=== PATIENT | male | born 1930 | race Caucasian/White ===

== ENCOUNTER → 2016-12-05 | Outpatient (CLI) | payer OTHER, BC ==
[~2016-12-05] MED LIST: ACET-1256 PO; AMLO-110 PO; ASPI81TA28 PO; CLC100 PO; CLOP1TAB15 PO; CLR10 PO; COEN100C15 PO; CYAN1LOZ PO; CYAN1TAB4 PO; DIPH25CA65 PO; DOFE250C PO; DOXA1TAB86 PO; EZET10TA47 PO; HYDR-5688 PO; LDDP5 TD; LISI-725 PO; LRS10 PO; MONT1TAB3 PO; MRLP17 PO; NCYSR50 PO; NTRGSL/4 UT; PANT1TAB48 PO; SILO8CAP PO; SIMV10TA5 PO; SNK PO; WARF5TAB90 PO
[2016-12-05 13:17] LABS: BASO % 0.4 %; BASO ABS # 0.02 K/uL (0-0.2); COMPLETE YES; EOS % 8.3 %; HEMATOCRIT 38.1 % (42-52); IG% 0.4 %; LYMPH ABS # 1.03 K/uL (1.2-3.4); MEAN CELL VOLUME 89.2 fL (80-100); MEAN CORPUSCULAR HEMOGLOBIN 30.2 pg (25-34); MEAN CORPUSCULAR HGB CONC 33.9 g/dl (32-36); MEAN PLATELET VOLUME 11.8 fL (7.4-10.4); MONO % 8.1 %; NEUT % 62.8 %; PLATELET COUNT 126 K/uL (130-400); RED BLOOD COUNT 4.27 M/uL (4.7-6.1); WHITE BLOOD COUNT 5.16 K/uL (4.8-10.8)
[2016-12-05 13:40] LABS: ALT/SGPT 27 U/L (12-78); BLOOD UREA NITROGEN 20 mg/dl (7-18); BUN/CREATININE RATIO 18.1 (10-20); CARBON DIOXIDE 25 mmol/L (21-32); CHLORIDE 108 mmol/L (98-107); CHOLESTEROL 111 mg/dl (0-200); GLUCOSE 122 mg/dl (70-99); POTASSIUM 4.4 mmol/L (3.5-5.1); SODIUM 142 mmol/L (136-145)
[2016-12-05 13:53] LABS: ESTIMATED AVERAGE GLUCOSE 137 mg/dl; HA1C FLAG Normal (Normal)
[2016-12-05 14:45] LABS: ALB/GLOB RATIO 1.1 (0.9-2); ALKALINE PHOSPHATASE 85 U/L (45-117); AST/SGOT 24 U/L (15-37); CHOLESTEROL/HDL RATIO 1.9; HDL CHOLESTEROL 57 mg/dl; LDL CHOLESTEROL CALCULATED 43 mg/dl; TRIGLYCERIDES 53 mg/dl (0-150); VERY LOW DENSITY LIPOPROT CALC 11 mg/dl
--- NOTE | 2016-12-09 13:43 | CODING QUERY MEDICAL NECESSITY ---
SUPPORTING DIAGNOSIS NEEDED Dr. Springer, A supporting diagnosis is required for the test/procedure performed on this patient in order for us to be reimbursed by the patient's insurance. Please provide a supporting diagnosis for the following test/procedure listed below next to the test name along with your signature. *If there is no additional diagnosis for this patient that would support the following test/procedure please document that below next to the test/procedure. Test(s)/Procedure(s) that require a supporting diagnosis: * 23076 GLYCATED HEMOGLOBIN DIAGNOSIS: DATE OF SERVICE: 12/05/16 Provider Signature: Date: Thank you Oscar Hough [facility] Information Management Once completed, please kindly fax back to [phone] For questions please call [phone]
== END | disposition home or self-care (01) ==
LOC: C.LAB 11:59
PROVIDERS: ATTEND Internal Medicine
DX: D61.818 Other pancytopenia (principal); R73.01 Impaired fasting glucose

== ENCOUNTER → 2017-01-26 | Outpatient (CLI) | payer OTHER, BC ==
[~2017-01-26] MED LIST changes: -CLC100 PO; -CYAN1TAB4 PO; -HYDR-5688 PO; -LDDP5 TD; -LRS10 PO; -MRLP17 PO; -NCYSR50 PO; -SNK PO
[2017-01-26 15:42] LABS: INR 1.9 (0.9-1.1); PROTHROMBIN TIME (PATIENT) 21.1 SECONDS (9.0-12.0)
[2017-01-26 15:46] LABS: BASO % 0.2 %; BASO ABS # 0.01 K/uL (0-0.2); COMPLETE YES; EOS % 6.9 %; HEMATOCRIT 35.5 % (42-52); IG% 0.2 %; LYMPH % 27.3 %; LYMPH ABS # 1.26 K/uL (1.2-3.4); MEAN CELL VOLUME 87.4 fL (80-100); MEAN CORPUSCULAR HEMOGLOBIN 29.8 pg (25-34); MEAN CORPUSCULAR HGB CONC 34.1 g/dl (32-36); MEAN PLATELET VOLUME 11.6 fL (7.4-10.4); MONO % 10.4 %; PLATELET COUNT 116 K/uL (130-400); RED BLOOD COUNT 4.06 M/uL (4.7-6.1); WHITE BLOOD COUNT 4.61 K/uL (4.8-10.8)
[2017-01-26 16:11] LABS: BLOOD UREA NITROGEN 17 mg/dl (7-18); BUN/CREATININE RATIO 13.8 (10-20); CALCIUM 9.2 mg/dl (8.5-10.1); CARBON DIOXIDE 26 mmol/L (21-32); CHLORIDE 108 mmol/L (98-107); GLUCOSE 114 mg/dl (70-99); POTASSIUM 4.3 mmol/L (3.5-5.1); SODIUM 142 mmol/L (136-145)
== END | disposition home or self-care (01) ==
LOC: C.LAB 14:02
PROVIDERS: ATTEND Internal Medicine Cardiovascular Disease
DX: R94.30 Abnormal result of cardiovascular function study, unspecified (principal)

== ENCOUNTER → 2017-02-11 | Day surgery (SDC) | payer OTHER, BC ==
[2017-01-06 13:42] VITALS: Ht 165.1 cm; Wt 77.3 kg
[~2017-02-11] VITALS: Ht 165.1 cm; Wt 77.3 kg
[~2017-02-11] MED LIST changes: +500ML BSS 0.3ML EPI 1:1000PF IRRIG ONE; +ACETAMINOPHEN 325 MG TAB PO PRN; +AMVISC PLUS 0.8ML SYRINGE INT OCU ONE; +ATROPINE SULFATE 0.1 MG/ML 5ML SYR IV PRN; +AcetaZOLAMIDE 250 MG TAB PO SCH; +BETAXOLOL HCL 0.25% OP SUSP PER DROP CHARGE OPR SCH; +BRIMONIDINE TART 0.2% OP SOLN PER DROP CHARGE ONE; +BSS FLUSH ONE; +ENDOCOAT 0.85ML SYRINGE INT OCU ONE; +EpINEphrine INJ 1MG/ML AMP 1 MG/ML AMP ONE; +LACTATED RINGER'S 1000ML 500 ML IV SCH; +LIDOCAINE 4% OP SOLN DROP CHARGE ONE; +LIDOCAINE 4% OP SOLN DROP CHARGE OPR SCH; +LIDOCAINE HCL 1% MPF 2 ML VIAL ONE; +MIDAZOLAM HCL 1 MG/ML 2ML VIAL ONE; +MIX: 4ML BSS 1ML EPI 1:1000 PF INSTIL ONE; +MOXIFLOXACIN OPH SOLN PER DROP CHARGE ONE; +OCUCOAT 1 ML SOLN IO ONE; +POVIDONE-IODINE OP SOLN 30 ML BTL ONE; +PROPARACAINE 0.5% OP SOLN PER DROP CHARGE OPR SCH; +TOBRAMYCIN/DEXAMETHASONE OPH OINT PER APPLN CHARGE ONE
--- NOTE | 2017-02-11 06:36 | History & Physical Bridge - SC ---
H&P Re-Evaluation Bridge Note: I have examined the patient, reviewed the History & Physical and in the interval since the performance of the History & Physical I have noted the following changes of clinical significance: No changes noted
[2017-02-11] MEDS: PHENYLEPHRINE HCL 2.5% OP SOLN PER DROP CHARGE OPR SCH ×2 (06:43→06:48)
[2017-02-11] MEDS: TROPICAMIDE 1% OP SOLN PER DROP CHARGE OPR SCH ×2 (06:44→06:49)
[2017-02-11] MEDS: CYCLOPENTOLATE HCL 1% OP SOLN PER DROP CHARGE OPR SCH ×2 (06:45→06:50)
[2017-02-11] MEDS: MOXIFLOXACIN OPH SOLN PER DROP CHARGE OPR SCH ×2 (06:46→06:56)
--- NOTE | 2017-02-11 07:41 | Discharge Instructions-SurgCtr ---
Discharge Instructions Date of Service Feb 11, 2017. Visit Reason for Visit: Cataract Right Eye Discharge Discharge Diagnosis / Problem: lens implant right eye Discharge Goals Goal(s): Improve function Medications Stopped Medications Name(s): warfarin last dose last evening. Activity Recommendations Activity Limitations: resume your previous activity Lifting Limitations: no more than 10 pounds Exercise/Sports Limitations: gradually increase as tolerated May Resume Sexual Activity: when tolerated Shower/Bathe: tomorrow Driving or Machine Use: resume 1 day after discharge Anesthesia . Post Anesthesia Instructions: If you have had General Anesthesia or IV Sedation: * Do not drive today. * Resume driving when surgeon permits. * Do not make important decisions or sign legal documents today. * Call surgeon for: 1. Temperature elevations greater than 101 degrees F. 2. Uncontrollable pain. 3. Excessive bleeding. 4. Persistent nausea and vomiting. 5. Medication intolerance (nausea, vomiting or rash). * For nausea and vomiting use only clear liquids such as: tea, soda, bouillon until nausea subsides, then gradually increase diet as tolerated. * If you have any concerns or questions, call your surgeon's office. If physician is unavailable and it is an emergency, call 911 or go to the nearest emergency room. . Instructions / Follow-Up Instructions / Follow-Up ACTIVITY RECOMMENDATIONS: * Light activities. * Mild irritation and blurred vision are common for the first few days. * You may walk outside, read, watch television. * Redness around the white part of the eye is common. MEDICATIONS: Resume previous medications unless instructed otherwise by your surgeon. * Take white Diamox (Acetazolamide) tablet at 1 pm today. Start all eye drops at 1 pm today: * Eye drops (today and tomorrow): Prednisone - one drop in operative eye every 3 hours while awake Ofloxacin - one drop in operative eye every 3 hours while awake SPECIAL CARE INSTRUCTIONS: * Tape plastic shield over eye to sleep at night. Call your doctor at with any concerns or problems. FOLLOW UP VISIT: Follow-up with Dr Reyes at [place] office as scheduled. Diet Recommendations Home Diet: no limitations Procedures Procedures Performed: cataract extraction with lens implant Pending Studies Studies pending at discharge: no Medical Emergencies . Who to Call and When: Medical Emergencies: If at any time you feel your situation is an emergency, please call 911 immediately. . Non-Emergent Contact Non-Emergency issues call your: Postal Mail Carrier Call Non-Emergent contact if: your pain is not controlled [phone] . . "Provider Documentation" section prepared by Alejandro Reyes. .
--- NOTE | 2017-02-11 07:44 | [facility] Operative Report ---
Operative Report Date of Service Feb 11, 2017. Operative Report 1. PREOPERATIVE DIAGNOSIS: Senile nuclear cataract, right eye. 2. POSTOPERATIVE DIAGNOSIS: Senile nuclear cataract, right eye. 3. PROCEDURE: Phacoemulsification of right cataract with posterior chamber lens implant, type Alberto, model [id number], power +20.0 diopters. ANESTHESIA: Local standby. SURGEON: Dr. Reyes. COMPLICATIONS: None. OPERATING TIME: 10 minutes. 4. OPERATION AND FINDINGS: DESCRIPTION OF PROCEDURE: The right pupil was dilated. The anesthetic was administered using a topical technique. The right eye was prepped and draped. A speculum was placed. A clear corneal incision was formed. The chamber was filled with Amvisc Plus and Endocoat. Epinephrine solution was used. A paracentesis was placed. A capsulorrhexis was performed. The nucleus was hydrodissected. A dense lens was removed with phacoemulsification. Time was 8.50 seconds. The aspiration unit was used to remove the cortex. The capsule was filled with Amvisc Plus. The lens implant was folded and placed into the capsule. The lens was rotated to the correct position. The incision was hydrated. The Amvisc was aspirated. The wound was secure. The chamber was deep. The pupil was round. TobraDex ointment and Vigamox solution were placed. The speculum was removed. The patient was returned to the Recovery Room in stable condition. I attest to the content of the Intraoperative Record and any orders documented therein. Any exceptions are noted below. The scribe's documentation has been prepared in my presence, under my direction and personally reviewed by me in its entirety. I confirm that the note above accurately reflects all work, treatment, procedures, and medical decision making performed by me. I personally scribed for Alejandro Reyes M.D. ([email or web address]) on 02/11/17 at 07:44. Electronically submitted by Luh Geller ([email or web address]).
--- NOTE | 2017-02-11 08:06 | Anesthesia Progress Nt - [facility] ---
Anesthesia Post Op Note Date & Time Feb 11, 2017 at 08:05 Vital Signs Pain Intensity: 0 Vital Signs Past 12 Hours Date Time Temp Pulse Resp B/P Pulse Ox O2 Delivery O2 Flow Rate FiO2 02/11/17 07:43 36.8 68 16 154/74 97 Room Air 02/11/17 06:31 36.5 74 16 117/74 95 Room Air Notes Mental Status: alert / awake / arousable, participated in evaluation Pt Amnestic to Procedure: Yes Nausea / Vomiting: adequately controlled Pain: adequately controlled Airway Patency, RR, SpO2: stable & adequate BP & HR: stable & adequate Hydration State: stable & adequate Anesthetic Complications: no major complications apparent
[2017-02-11 08:15] VITALS: BP 147/73; PULSE 72; TEMP 36.8; O2SAT 96
== END | disposition home or self-care (01) ==
LOC: X.SURG 06:21
PROVIDERS: ATTEND Specialist
DX: H25.11 Age-related nuclear cataract, right eye (principal); I10 Essential (primary) hypertension; Z79.01 Long term (current) use of anticoagulants; Z79.82 Long term (current) use of aspirin

== ENCOUNTER → 2017-03-25 | Day surgery (SDC) | payer OTHER, BC ==
[2017-03-18 16:03] VITALS: Ht 165.1 cm; Wt 77.3 kg
[~2017-03-25] VITALS: Ht 165.1 cm; Wt 77.3 kg
[~2017-03-25] MED LIST changes: -ASPI81TA28 PO; +BETAXOLOL HCL 0.25% OP SUSP PER DROP CHARGE OPL SCH; -BETAXOLOL HCL 0.25% OP SUSP PER DROP CHARGE OPR SCH; -BSS FLUSH ONE; +LIDOCAINE 4% OP SOLN DROP CHARGE OPL SCH; -LIDOCAINE 4% OP SOLN DROP CHARGE OPR SCH; +PROPARACAINE 0.5% OP SOLN PER DROP CHARGE OPL SCH; -PROPARACAINE 0.5% OP SOLN PER DROP CHARGE OPR SCH
[2017-03-25] MEDS: PHENYLEPHRINE HCL 2.5% OP SOLN PER DROP CHARGE OPL SCH ×2 (09:17→09:21)
[2017-03-25] MEDS: TROPICAMIDE 1% OP SOLN PER DROP CHARGE OPL SCH ×2 (09:18→09:22)
[2017-03-25] MEDS: MOXIFLOXACIN OPH SOLN PER DROP CHARGE OPL SCH ×2 (09:19→09:30)
[2017-03-25] MEDS: CYCLOPENTOLATE HCL 1% OP SOLN PER DROP CHARGE OPL SCH ×2 (09:19→09:23)
--- NOTE | 2017-03-25 10:31 | Discharge Instructions-SurgCtr ---
Discharge Instructions Date of Service Mar 25, 2017. Visit Reason for Visit: Cataract Left Eye Discharge Discharge Diagnosis / Problem: lens implant left eye Discharge Goals Goal(s): Improve function Activity Recommendations Activity Limitations: resume your previous activity Lifting Limitations: no more than 10 pounds Exercise/Sports Limitations: gradually increase as tolerated May Resume Sexual Activity: when tolerated Shower/Bathe: tomorrow Driving or Machine Use: resume 1 day after discharge Anesthesia . Post Anesthesia Instructions: If you have had General Anesthesia or IV Sedation: * Do not drive today. * Resume driving when surgeon permits. * Do not make important decisions or sign legal documents today. * Call surgeon for: 1. Temperature elevations greater than 101 degrees F. 2. Uncontrollable pain. 3. Excessive bleeding. 4. Persistent nausea and vomiting. 5. Medication intolerance (nausea, vomiting or rash). * For nausea and vomiting use only clear liquids such as: tea, soda, bouillon until nausea subsides, then gradually increase diet as tolerated. * If you have any concerns or questions, call your surgeon's office. If physician is unavailable and it is an emergency, call 911 or go to the nearest emergency room. . Instructions / Follow-Up Instructions / Follow-Up ACTIVITY RECOMMENDATIONS: * Light activities. * Mild irritation and blurred vision are common for the first few days. * You may walk outside, read, watch television. * Redness around the white part of the eye is common. MEDICATIONS: Resume previous medications unless instructed otherwise by your surgeon. Start all eye drops at 1 pm today: * Eye drops (today and tomorrow): Prednisone - one drop in operative eye every 3 hours while awake Ofloxacin - one drop in operative eye every 3 hours while awake SPECIAL CARE INSTRUCTIONS: * Tape plastic shield over eye to sleep at night. Call your doctor at with any concerns or problems. FOLLOW UP VISIT: Follow-up with Dr Reyes at [place] office as scheduled. Diet Recommendations Home Diet: no limitations Procedures Procedures Performed: cataract extraction with lens implant Pending Studies Studies pending at discharge: no Medical Emergencies . Who to Call and When: Medical Emergencies: If at any time you feel your situation is an emergency, please call 911 immediately. . Non-Emergent Contact Non-Emergency issues call your: Greenhouse Worker Call Non-Emergent contact if: your pain is not controlled [phone] . . "Provider Documentation" section prepared by Alejandro Reyes. .
--- NOTE | 2017-03-25 10:35 | [facility] Operative Report ---
Operative Report Date of Service Mar 25, 2017. Operative Report 1. PREOPERATIVE DIAGNOSIS: Senile nuclear cataract, left eye. 2. POSTOPERATIVE DIAGNOSIS: Senile nuclear cataract, left eye. 3. PROCEDURE: Phacoemulsification of left cataract with posterior chamber lens implant, type [employer]ch [employer] Lomb, model MX60, power +21 diopters. ANESTHESIA: Local standby. SURGEON: Dr. Reyes. COMPLICATIONS: None. OPERATING TIME: 10 minutes. 4. OPERATION AND FINDINGS: DESCRIPTION OF PROCEDURE: The left pupil was dilated. The anesthetic was administered using a topical technique. The left eye was prepped and draped. A speculum was placed. A clear corneal incision was formed. The chamber was filled with Amvisc Plus and Endocoat. Epinephrine solution was used. A paracentesis was placed. A capsulorrhexis was performed. The nucleus was hydrodissected. The lens was removed with phacoemulsification. Time was 6.84 seconds. The aspiration unit was used to remove the cortex. The capsule was filled with Amvisc Plus. The lens implant was folded and placed into the capsule. An astigmatic incision was placed at the limbus directly across from the original incision. The incisions were hydrated. The Amvisc was aspirated. The wounds were secure. The chamber was deep. The pupil was round. Brimonidine, TobraDex ointment and Vigamox solution were placed. The speculum was removed. The patient was returned to the Recovery Room in stable condition. I attest to the content of the Intraoperative Record and any orders documented therein. Any exceptions are noted below. The scribe's documentation has been prepared in my presence, under my direction and personally reviewed by me in its entirety. I confirm that the note above accurately reflects all work, treatment, procedures, and medical decision making performed by me. I personally scribed for Alejandro Reyes M.D. ([email or web address]) on 03/25/17 at 10:35. Electronically submitted by Luh LOFTON).
--- NOTE | 2017-03-25 11:07 | Anesthesia Progress Nt - [facility] ---
Anesthesia Post Op Note Date & Time Mar 25, 2017 at 11:07 Vital Signs Pain Intensity: 0 Vital Signs Past 12 Hours Date Time Temp Pulse Resp B/P (MAP) Pulse Ox O2 Delivery O2 Flow Rate FiO2 03/25/17 10:40 36.5 73 14 152/77 (102) 98 Room Air 03/25/17 09:00 36.7 61 16 128/76 (93) 95 Room Air Notes Mental Status: alert / awake / arousable, participated in evaluation Pt Amnestic to Procedure: Yes Nausea / Vomiting: adequately controlled Pain: adequately controlled Airway Patency, RR, SpO2: stable & adequate BP & HR: stable & adequate Hydration State: stable & adequate Anesthetic Complications: no major complications apparent
[2017-03-25 11:12] VITALS: BP 134/70; PULSE 72; TEMP 36.6; O2SAT 96
== END | disposition home or self-care (01) ==
LOC: X.SURG 08:27
PROVIDERS: ATTEND Specialist
DX: H25.12 Age-related nuclear cataract, left eye (principal); I25.10 Atherosclerotic heart disease of native coronary artery without angina pectoris; I10 Essential (primary) hypertension; I48.91 Unspecified atrial fibrillation; M19.90 Unspecified osteoarthritis, unspecified site; I25.2 Old myocardial infarction; Z95.1 Presence of aortocoronary bypass graft; Z79.01 Long term (current) use of anticoagulants

== ENCOUNTER → 2017-06-01 | Outpatient (CLI) | payer OTHER, BC ==
[~2017-06-01] MED LIST changes: -500ML BSS 0.3ML EPI 1:1000PF IRRIG ONE; -ACETAMINOPHEN 325 MG TAB PO PRN; -AMVISC PLUS 0.8ML SYRINGE INT OCU ONE; -ATROPINE SULFATE 0.1 MG/ML 5ML SYR IV PRN; -AcetaZOLAMIDE 250 MG TAB PO SCH; -BETAXOLOL HCL 0.25% OP SUSP PER DROP CHARGE OPL SCH; -BRIMONIDINE TART 0.2% OP SOLN PER DROP CHARGE ONE; -ENDOCOAT 0.85ML SYRINGE INT OCU ONE; -EpINEphrine INJ 1MG/ML AMP 1 MG/ML AMP ONE; -LACTATED RINGER'S 1000ML 500 ML IV SCH; -LIDOCAINE 4% OP SOLN DROP CHARGE ONE; -LIDOCAINE 4% OP SOLN DROP CHARGE OPL SCH; -LIDOCAINE HCL 1% MPF 2 ML VIAL ONE; -MIDAZOLAM HCL 1 MG/ML 2ML VIAL ONE; -MIX: 4ML BSS 1ML EPI 1:1000 PF INSTIL ONE; -MOXIFLOXACIN OPH SOLN PER DROP CHARGE ONE; -OCUCOAT 1 ML SOLN IO ONE; -POVIDONE-IODINE OP SOLN 30 ML BTL ONE; -PROPARACAINE 0.5% OP SOLN PER DROP CHARGE OPL SCH; -TOBRAMYCIN/DEXAMETHASONE OPH OINT PER APPLN CHARGE ONE
[2017-06-01 13:27] LABS: BASO % 0.2 %; BASO ABS # 0.01 K/uL (0-0.2); COMPLETE YES; EOS % 7.9 %; HEMATOCRIT 35.1 % (42-52); LYMPH % 22.3 %; LYMPH ABS # 1.02 K/uL (1.2-3.4); MEAN CELL VOLUME 89.3 fL (80-100); MEAN CORPUSCULAR HEMOGLOBIN 29.8 pg (25-34); MEAN CORPUSCULAR HGB CONC 33.3 g/dl (32-36); MEAN PLATELET VOLUME 11.2 fL (7.4-10.4); MONO % 10.3 %; NEUT % 59.3 %; PLATELET COUNT 128 K/uL (130-400); RED BLOOD COUNT 3.93 M/uL (4.7-6.1); WHITE BLOOD COUNT 4.57 K/uL (4.8-10.8)
[2017-06-01 13:45] LABS: ESTIMATED AVERAGE GLUCOSE 137 mg/dl; HA1C FLAG Normal (Normal)
[2017-06-01 13:54] LABS: ALT/SGPT 24 U/L (12-78); BLOOD UREA NITROGEN 20 mg/dl (7-18); BUN/CREATININE RATIO 18.2 (10-20); CALCIUM 9.2 mg/dl (8.5-10.1); CARBON DIOXIDE 26 mmol/L (21-32); CHLORIDE 109 mmol/L (98-107); CHOLESTEROL 100 mg/dl (0-200); GLUCOSE 105 mg/dl (70-99); POTASSIUM 4.4 mmol/L (3.5-5.1); SODIUM 140 mmol/L (136-145); TRIGLYCERIDES 58 mg/dl (0-150); VERY LOW DENSITY LIPOPROT CALC 12 mg/dl
[2017-06-01 13:57] LABS: ALB/GLOB RATIO 1.1 (0.9-2); ALKALINE PHOSPHATASE 67 U/L (45-117); AST/SGOT 22 U/L (15-37); CHOLESTEROL/HDL RATIO 2.1; HDL CHOLESTEROL 47 mg/dl; LDL CHOLESTEROL CALCULATED 41 mg/dl
--- NOTE | 2017-06-26 10:32 | CODING QUERY MEDICAL NECESSITY ---
CQSUPPORTING DIAGNOSIS NEEDED A supporting diagnosis is required for the test/procedure performed on this patient in order for us to be reimbursed by the patient's insurance. Please provide a supporting diagnosis for the following test/procedure listed below next to the test name along with your signature. *If there is no additional diagnosis for this patient that would support the following test/procedure please document that below next to the test/procedure. Test(s)/Procedure(s) that require a supporting diagnosis: DOS 06/01/17 GLYCATED HEMOGLOBIN TEST Provider Signature: Date: Thank you Bushra Ernandez Health Information Management Once completed, please kindly fax back to [phone] For questions please call [phone]
== END | disposition home or self-care (01) ==
LOC: C.LAB 11:56
PROVIDERS: ATTEND Internal Medicine
DX: I48.0 Paroxysmal atrial fibrillation (principal); R73.01 Impaired fasting glucose

== ENCOUNTER → 2018-06-09 | Outpatient (CLI) | payer OTHER, BC ==
[~2018-06-09] MED LIST changes: -AMLO-110 PO; +AMLO5TAB3 PO; +PANT1TAB3 PO; -PANT1TAB48 PO
[2018-06-09 12:18] LABS: BASO % 0.2 %; BASO ABS # 0.01 K/uL (0-0.2); EOS % 8.7 %; EOS ABS # 0.42 K/uL (0-0.5); HEMATOCRIT 34.6 % (42-52); HEMOGLOBIN 11.7 g/dL (14.0-18.0); IG# 0.01 K/uL (0.00-0.02); LYMPH % 24.9 %; MEAN CELL VOLUME 87.6 fL (80-100); MEAN CORPUSCULAR HEMOGLOBIN 29.6 pg (25-34); MEAN CORPUSCULAR HGB CONC 33.8 g/dl (32-36); MEAN PLATELET VOLUME 11.4 fL (7.4-10.4); MONO % 8.5 %; MONO ABS # 0.41 K/uL (0.11-0.59); NEUT % 57.5 %; NEUT ABS # 2.77 K/uL (1.4-6.5); PLATELET COUNT 130 K/uL (130-400); RED CELL DISTRIBUTION WIDTH CV 12.8 % (11.5-14.5); RED CELL DISTRIBUTION WIDTH SD 41.4 fL (36.4-46.3); WHITE BLOOD COUNT 4.82 K/uL (4.8-10.8)
[2018-06-09 12:39] LABS: ALBUMIN 3.1 gm/dl (3.4-5.0); ALKALINE PHOSPHATASE 91 U/L (45-117); ALT/SGPT 24 U/L (12-78); AST/SGOT 22 U/L (15-37); BLOOD UREA NITROGEN 18 mg/dl (7-18); CALCIUM 8.6 mg/dl (8.5-10.1); CARBON DIOXIDE 26 mmol/L (21-32); CHOLESTEROL 131 mg/dl (0-200); CREATININE 1.09 mg/dl (0.60-1.40); GLUCOSE 111 mg/dl (70-99); HEMOGLOBIN A1C 6.4 % (4.5-5.6); LDL CHOLESTEROL CALCULATED 61 mg/dl; POTASSIUM 4.4 mmol/L (3.5-5.1); SODIUM 139 mmol/L (136-145); TOTAL PROTEIN 6.5 gm/dl (6.4-8.2)
== END | disposition home or self-care (01) ==
LOC: C.LAB 11:12
PROVIDERS: ATTEND Internal Medicine
DX: E78.5 Hyperlipidemia, unspecified (principal); I10 Essential (primary) hypertension; I25.10 Atherosclerotic heart disease of native coronary artery without angina pectoris; I48.0 Paroxysmal atrial fibrillation; R73.01 Impaired fasting glucose; Z79.01 Long term (current) use of anticoagulants; D61.818 Other pancytopenia

== ENCOUNTER 2018-11-09 18:02 | Inpatient (IN) ==
[2018-11-09] MEDS ORDERED: FUROSEMIDE 40 MG/4 ML VIAL IV STA (18:25)
[2018-11-09 19:11] LABS: Basophils # (auto) 0.02 K/uL (0-0.2); Basophils % (auto) 0.3 %; Eosinophils # (auto) 0.53 K/uL (0-0.5); Eosinophils % (auto) 8.3 %; Hemoglobin 10.8 g/dL (14.0-18.0); Immature Granulocytes # (auto) 0.01 K/uL (0.00-0.02); Immature Granulocytes % (auto) 0.2 %; Lymphocytes # (auto) 0.88 K/uL (1.2-3.4); Lymphocytes % (auto) 13.9 %; Mean Corpuscular Hgb Conc 32.7 g/dL (32-36); Mean Corpuscular Volume 91.4 fL (80-100); Mean Platelet Volume 10.8 fL (7.4-10.4); Monocytes # (auto) 0.61 K/uL (0.11-0.59); Monocytes % (auto) 9.6 %; Neutrophils % (auto) 67.7 %; Platelet Count 146 K/uL (130-400); RDW Coefficient of Variation 12.7 % (11.5-14.5); RDW Standard Deviation 42.5 fL (36.4-46.3); Red Blood Count 3.61 M/uL (4.7-6.1); White Blood Count 6.35 K/uL (4.8-10.8)
--- NOTE | 2018-11-09 19:33 | XRay Report ---
XR chest 1V portable CLINICAL HISTORY: Chest Pain COMPARISON STUDY: Chest radiograph September 26, 2018. FINDINGS: There are median sternotomy wires. There are small bilateral pleural effusions. There is no pneumothorax. Mild bibasilar opacities favor atelectasis. Pulmonary edema has developed since prior exam. Moderate cardiomegaly is noted. IMPRESSION: 1. Interval development of mild pulmonary edema with small bilateral pleural effusions. 2. Bibasilar opacities suggestive of atelectasis. Electronically signed by: Ten Perales M.D. 11/09/2018 7:31 PM
[2018-11-09 19:35] LABS: Albumin Level 2.4 gm/dl (3.4-5.0); BUN Creatinine Ratio 17.5 (10-20); Calcium 8.6 mg/dl (8.5-10.1); Creatinine Clr Calc Pharmacy 29.5 ml/min; Est GFR (African American) 39.7; Est GFR (Non-African American) 34.2; Potassium 4.3 mmol/L (3.5-5.1)
[2018-11-09 19:40] LABS: Albumin Globulin Ratio 0.7 (0.9-2); Bilirubin,Total 0.4 mg/dl (0.2-1); Creatine Kinase MB 1.7 ng/ml (0.5-3.6); Globulin 3.7 gm/dl (2.5-4.0); Total Protein 6.1 gm/dl (6.4-8.2); Troponin I 0.016 ng/ml (0-0.045)
[2018-11-09 20:41] LABS: Appearance Urine Clear (Clear); Bacteria Urine Automated Negative (Negative); Bilirubin Urine Negative (Negative); Blood Urine 1+ (Negative); Cast Urine Automated 0 /lpf (0-5); Color Urine Yellow; Glucose Urine UA Negative (Negative); Ketones Urine Negative (Negative); Leukocyte Esterase Urine Negative (Negative); Nitrite Urine Negative (Negative); Protein Urine 3+ (Negative); Specific Gravity Urine 1.009 (1.000-1.030); Urobilinogen Urine Negative (Negative)
--- NOTE | 2018-11-09 22:21 | History & Physical Report ---
Date of Service November 09, 2018 Assessment & Plan (1) CHF exacerbation: CAD/hypertension/atrial fibrillation/CHF exacerbation-- The patient will be admitted to telemetry for serial cardiac enzymes, serial EKG's, cardiac rhythm monitoring and a 2-D echocardiogram with Dopplers. Continue amiodarone 400 mg p.o. every afternoon, apixaban 5 mg p.o. twice daily , aspirin 81 mg daily, doxazosin 4 mg p.o. daily. Due to acute kidney will hold lisinopril [address] twice daily. Place on albumin 25 g with 40 mg of furosemide IV every 8 hours x3. Follow serial laboratories. We will consult his liquefied natural gas operator Dr. Mabry. Present on Admission?: Yes (2) Atrial fibrillation: See above Present on Admission?: Yes (3) HTN (hypertension): See above Present on Admission?: Yes (4) CAD (coronary artery disease): See above Present on Admission?: Yes (5) Acute kidney injury superimposed on chronic kidney disease: Suspect more of a forward flow issue. Hold lisinopril for now. Follow serial laboratories with diuresis. Consult his replenishment specialist Dr. Ramirez. Present on Admission?: Yes (6) Hypercholesterolemia: Continue simvastatin 10 mg daily and Zetia 10 mg daily Present on Admission?: Yes History of Present Illness Chief Complaint: The patient presents to the emergency department with a 15 pound weight gain, progressively worsening shortness of breath and dyspnea on exertion over the past month since discharge from his last admission from 09/26- 10/01. Primary Care Provider: Elias Springer MD The patient is an 88-year-old male with a PMH including CAD/hypertension/ hyperlipidemia/paroxysmal atrial fibrillation/chronic kidney disease stage III and anemia, who presents to the emergency department with a 15 pound weight gain since discharge on 10/01, and worsening shortness of breath. He also reports intermittent itching from a generalized body rash that he and family reports has been present over the past few years. Allergies Allergy/AdvReac Type Severity Reaction Status Date / Time animal dander Allergy Unknown RESPIRATORY Verified 11/09/18 19:43 PROBLEMS Iodinated Contrast- Oral and Allergy Unknown "MILD Verified 11/09/18 19:43 IV Dye TICKLLING OF THROAT" mold Allergy Unknown RESPIRATORY Verified 11/09/18 19:43 PROBLEMS pollen extracts Allergy Unknown RESPIRATORY Verified 11/09/18 19:43 PROBLEMS Home Medications Home Medications Medication Instructions Recorded Confirmed Type Sildenafil Citrate 20 Mg 1 - 5 tab PO UD 09/26/18 11/09/18 History acetaminophen [Tylenol] 650 mg PO Q6H PRN 09/26/18 11/09/18 History apixaban [Eliquis] 5 mg PO BID 09/26/18 11/09/18 History coenzyme Q10 [Co Q-10] 100 mg PO DAILY 09/26/18 11/09/18 History cyanocobalamin (vitamin B-12) 500 mcg PO DAILY 09/26/18 11/09/18 History [Vitamin B-12] doxazosin 4 mg PO DAILY 09/26/18 11/09/18 History ezetimibe [Zetia] 10 mg PO QPM 09/26/18 11/09/18 History lisinopril [Zestril] 20 mg PO BID 09/26/18 11/09/18 History montelukast [Singulair] 10 mg PO PM 09/26/18 11/09/18 History nitroglycerin [Nitrostat] 0.4 mg SUBLINGUAL UD PRN 09/26/18 11/09/18 History pantoprazole [Protonix] 40 mg PO QPM 09/26/18 11/09/18 History simvastatin [Zocor] 10 mg PO QPM 09/26/18 11/09/18 History amiodarone [Pacerone] 400 mg PO QPM 11/09/18 11/09/18 History aspirin [Aspir-81] 81 mg PO QPM 11/09/18 11/09/18 History furosemide [Lasix] 20 mg PO DAILY PRN 11/09/18 11/09/18 History Past Med/Surg History Medical History GI (gastrointestinal bleed) (Acute 11/13/13) Cecum mass (Acute 11/08/13) CAD (coronary artery disease) (Chronic) HTN (hypertension) (Chronic) Hypercholesterolemia (Chronic) H/O gastroesophageal reflux (GERD) (Chronic) Afib (Chronic) Intractable back pain (Acute) Asthma Allergy induced. History of heart attack 1980 Hypoalbuminemia Surgical History Post-operative state (Acute 11/08/13) Hx of CABG (Resolved) H/O right hemicolectomy (Resolved) Hx of heart artery stent 2 stents, one placed in 2006 and 2017 in the grafts Family History Other Family history non-contributory Social History marital status: Current Living Situation: Spouse current occupational status: retired Feels Safe at Home: Yes Safety Concerns: Feels Safe At This Time Smoking Status: Never smoker Second Hand Exposure: No Hx Alcohol Use: No Hx Substance Use: No Beliefs That Will Affect Care: None Preferred Language: [place] Communication Ability: Effective Review of Systems The patient denies chest pain, palpitations, cough, sore throat, fevers, chills , sweats, nausea, vomiting, diarrhea , constipation, abdominal pain, pelvic pain , blood in urine or stool, dysuria, urinary frequency or urgency, lightheadedness, dizziness, headache, memory loss, loss of consciousness, abnormal bruising or bleeding, imbalance, focal weakness, numbness or tingling in arms or legs, generalized arthralgias or myalgias, back or neck pain, or night sweats. The review of systems is otherwise negative other than for that already noted above, and at least 10 systems have been reviewed. Physical Exam 2 Vital Signs (Past 24 Hours): Last Vital Signs Temp 36.6 C 11/09/18 18:07 Pulse 62 11/09/18 21:38 Resp 22 11/09/18 21:38 BP 171/78 H 11/09/18 21:38 Pulse Ox 94 11/09/18 21:38 Physical Exam: The patient is awake, alert and oriented �3, normocephalic and atraumatic, lying in bed and in very mild distress due to SOB. HEENT--PERRL, EOMI, mucous membranes and oropharynx dry. Neck--supple. No JVD. No bruits. Thyroid normal, trachea midline, no adenopathy. Heart--normal S1 and S2. No murmurs, rubs or gallops. Lungs--crackles at the bases bilaterally. Abdomen--normal bowel sounds and soft. Nontender. Nondistended. Extremities--no cyanosis or clubbing. Bilateral pretibial 2+ pitting edema. There are good distal pulses b/l. Dermatologic--disseminated pinpoint to macular rash throughout. Neurologic--cranial nerves II through XII grossly intact. Rheumatologic--normal range of motion. Psychiatric--normal affect. Results & Data Laboratory Results Laboratory Results WBC 6.35 K/uL (4.8-10.8) 11/09/18 18:45 RBC 3.61 M/uL (4.7-6.1) L 11/09/18 18:45 Hgb 10.8 g/dL (14.0-18.0) L 11/09/18 18:45 Hct 33.0 % (42-52) L 11/09/18 18:45 MCV 91.4 fL (80-100) 11/09/18 18:45 MCH 29.9 pg (25-34) 11/09/18 18:45 MCHC 32.7 g/dL (32-36) 11/09/18 18:45 RDW Std Deviation 42.5 fL (36.4-46.3) 11/09/18 18:45 RDW Coeff of [place] 12.7 % (11.5-14.5) 11/09/18 18:45 Plt Count 146 K/uL (130-400) 11/09/18 18:45 MPV 10.8 fL (7.4-10.4) H 11/09/18 18:45 Immature Gran % (Auto) 0.2 % 11/09/18 18:45 Neut % (Auto) 67.7 % 11/09/18 18:45 Lymph % (Auto) 13.9 % 11/09/18 18:45 [place] % (Auto) 9.6 % 11/09/18 18:45 Eos % (Auto) 8.3 % 11/09/18 18:45 Baso % (Auto) 0.3 % 11/09/18 18:45 Immature Gran # (Auto) 0.01 K/uL (0.00-0.02) 11/09/18 18:45 Neut # (Auto) 4.30 K/uL (1.4-6.5) 11/09/18 18:45 Lymph # (Auto) 0.88 K/uL (1.2-3.4) L 11/09/18 18:45 [place] # (Auto) 0.61 K/uL (0.11-0.59) H 11/09/18 18:45 Eos # (Auto) 0.53 K/uL (0-0.5) H 11/09/18 18:45 Baso # (Auto) 0.02 K/uL (0-0.2) 11/09/18 18:45 Sodium 138 mmol/L (136-145) 11/09/18 18:45 Potassium 4.3 mmol/L (3.5-5.1) 11/09/18 18:45 Chloride 102 mmol/L (98-107) 11/09/18 18:45 Carbon Dioxide 28 mmol/L (21-32) 11/09/18 18:45 Anion Gap 7.0 (3-11) 11/09/18 18:45 BUN 30 mg/dl (7-18) H 11/09/18 18:45 Creatinine 1.74 mg/dl (0.6-1.4) H 11/09/18 18:45 Est Cr Clr Drug Dosing 29.5 ml/min 11/09/18 18:45 Est GFR ( Amer) 39.7 11/09/18 18:45 Est GFR (Non-Af Amer) 34.2 11/09/18 18:45 BUN/Creatinine Ratio 17.5 (10-20) 11/09/18 18:45 Glucose 135 mg/dl (70-99) H 11/09/18 18:45 Calcium 8.6 mg/dl (8.5-10.1) 11/09/18 18:45 Total Bilirubin 0.4 mg/dl (0.2-1) 11/09/18 18:45 AST 18 U/L (15-37) 11/09/18 18:45 ALT 18 U/L (12-78) 11/09/18 18:45 Alkaline Phosphatase 85 U/L (45-117) 11/09/18 18:45 Total Creatine Kinase 127 U/L (39-308) 11/09/18 18:45 CK-MB (CK-2) 1.7 ng/ml (0.5-3.6) 11/09/18 18:45 CK/CKMB % Calc 1.3 (0-3.0) 11/09/18 18:45 Troponin I 0.024 ng/ml (0-0.045) 11/09/18 23:58 NT-Pro-B Natriuret Pep 2652 pg/ml (0-1800) H 11/09/18 18:45 Total Protein 6.1 gm/dl (6.4-8.2) L 11/09/18 18:45 Albumin 2.4 gm/dl (3.4-5.0) L 11/09/18 18:45 Globulin 3.7 gm/dl (2.5-4.0) 11/09/18 18:45 Albumin/Globulin Ratio 0.7 (0.9-2) L 11/09/18 18:45 Lipase 105 U/L (73-393) 11/09/18 18:45 Urine Color Yellow 11/09/18 20:20 Urine Appearance Clear (Clear) 11/09/18 20:20 Urine pH 7.0 (4.5-7.5) 11/09/18 20:20 Ur Specific [place] 1.009 (1.000-1.030) 11/09/18 20:20 Urine Protein 3+ (Negative) H 11/09/18 20:20 Urine Glucose (UA) Negative (Negative) 11/09/18 20:20 Urine Ketones Negative (Negative) 11/09/18 20:20 Urine Blood 1+ (Negative) H 11/09/18 20:20 Urine Nitrite Negative (Negative) 11/09/18 20:20 Urine Bilirubin Negative (Negative) 11/09/18 20:20 Urine Urobilinogen Negative (Negative) 11/09/18 20:20 Ur Leukocyte Esterase Negative (Negative) 11/09/18 20:20 Urine WBC (Auto) 1-5 /hpf (0-5) 11/09/18 20:20 Urine RBC (Auto) 5-10 /hpf (0-4) H 11/09/18 20:20 U Hyaline Cast (Auto) 0 /lpf (0-5) 11/09/18 20:20 U Epithel Cells (Auto) 5-10 /lpf (0-5) H 11/09/18 20:20 Urine Bacteria (Auto) Negative (Negative) 11/09/18 20:20 Diagnostic Findings [facility] [place] [phone] XRay Report Patient: IRMA SOTO Date: 11/09/18 MR#: [id number]: [address] Acct ID:[id number]: Date: 1930jac[birth year] Zip: [place] [address] Age: 88Location: ED Sex: M Room/Bed: Att Phy: Diagnosis: SOB, RETAINING FLUID Roslyn Phy: Elias Springer M.D.Service Date: 11/09/18 Fam Phy: Daniel Mabry MDInterpreting Phy: Ten Perales MD Admit Phy: Ordering Phy: Cooper Hatfield MD cc: ~ XR chest 1V portable CLINICAL HISTORY: Chest Pain COMPARISON STUDY: Chest radiograph September 26, 2018. FINDINGS: There are median sternotomy wires. There are small bilateral pleural effusions. There is no pneumothorax. Mild bibasilar opacities favor atelectasis. Pulmonary edema has developed since prior exam. Moderate cardiomegaly is noted. IMPRESSION: 1. Interval development of mild pulmonary edema with small bilateral pleural effusions. 2. Bibasilar opacities suggestive of atelectasis. Electronically signed by: Ten Perales M.D. 11/09/2018 7:31 PM Dictated: 11/09/181929 Transcribed: 11/09/181929 Medications Administered Sildenafil Citrate 20 Mg 1 - 5 tab PO UD 09/26/18 [History Confirmed 11/09/18] acetaminophen [Tylenol] 650 mg PO Q6H PRN 09/26/18 [History Confirmed 11/09/18] apixaban [Eliquis] 5 mg PO BID 09/26/18 [History Confirmed 11/09/18] coenzyme Q10 [Co Q-10] 100 mg PO DAILY 09/26/18 [History Confirmed 11/09/18] cyanocobalamin (vitamin B-12) [Vitamin B-12] 500 mcg PO DAILY 09/26/18 [History Confirmed 11/09/18] doxazosin 4 mg PO DAILY 09/26/18 [History Confirmed 11/09/18] ezetimibe [Zetia] 10 mg PO QPM 09/26/18 [History Confirmed 11/09/18] lisinopril [Zestril] 20 mg PO BID 12/09/18 [History Confirmed 11/09/18] montelukast [Singulair] 10 mg PO PM 09/26/18 [History Confirmed 11/09/18] nitroglycerin [Nitrostat] 0.4 mg SUBLINGUAL UD PRN 09/26/18 [History Confirmed 11/09/18] pantoprazole [Protonix] 40 mg PO QPM 09/26/18 [History Confirmed 11/09/18] simvastatin [Zocor] 10 mg PO QPM 09/26/18 [History Confirmed 11/09/18] amiodarone [Pacerone] 400 mg PO QPM 11/09/18 [History Confirmed 11/09/18] aspirin [Aspir-81] 81 mg PO QPM 11/09/18 [History Confirmed 11/09/18] furosemide [Lasix] 20 mg PO DAILY PRN 11/09/18 [History Confirmed 11/09/18] Home Medications Acetaminophen (Ofirmev) 1,000 mg IV Q8H PRN PRN Reason: Pain or Fever Stop: 12/09/18 23:49 Acetaminophen (Tylenol) 650 mg PO Q4H PRN PRN Reason: Pain or Fever Stop: 12/09/18 23:49 Al Hydrox/Mg Hydrox/Simethicone (Maalox) 15 ml PO Q4H PRN PRN Reason: Dyspepsia Stop: 12/09/18 23:49 Albuterol (Duoneb) 3 ml NEB Q2H PRN PRN Reason: dyspnea Stop: 12/09/18 23:49 Amiodarone HCl (Cordarone) 400 mg PO QPM [facility] Stop: 12/10/18 20:59 Apixaban (Eliquis) 5 mg PO BID [facility] Stop: 12/09/18 23:49 Last Admin: 11/10/18 00:38 Dose: 5 mg Aspirin (Ecotrin Ectab) 81 mg PO QPM [facility] Stop: 12/10/18 20:59 Cyanocobalamin (Vitamin B-12) 500 mcg PO DAILY [facility] Stop: 12/10/18 08:59 Diphenhydramine HCl (Benadryl) 50 mg PO Q6H PRN PRN Reason: Itching Stop: 12/10/18 00:00 Last Admin: 11/10/18 00:17 Dose: 50 mg Doxazosin Mesylate (Cardura) 4 mg PO DAILY [facility] Stop: 12/10/18 08:59 Ezetimibe (Zetia) 10 mg PO QPM [facility] Stop: 12/10/18 20:59 Furosemide 40 mg/ Albumin (Human) 54 mls @ 54 mls/hr IV Q8H [facility] Stop: 11/11/18 00:59 Last Infusion: 11/10/18 01:56 Dose: Infused Ceftriaxone Sodium (Rocephin) 1,000 mg in 50 mls @ 100 mls/hr IV DAILY@0000 [facility] Stop: 11/17/18 00:00 Last Infusion: 11/10/18 01:00 Dose: Infused Magnesium Hydroxide (Milk Of Magnesia) 30 ml PO Q12H PRN PRN Reason: Constipation Stop: 12/09/18 23:49 Montelukast Sodium (Singulair) 10 mg PO PM [facility] Stop: 12/10/18 20:59 Ondansetron HCl (Zofran) 4 mg IV Q6H PRN PRN Reason: NAUSEA/VOMITING Stop: 12/09/18 23:49 Pantoprazole Sodium (Protonix) 40 mg PO QPM [facility] Stop: 12/10/18 20:59 Polyethylene Glycol (Miralax Powder Packet) 17 gm PO DAILY PRN PRN Reason: Constipation Stop: 12/09/18 23:49 Simvastatin (Zocor) 10 mg PO QPM [facility] Stop: 12/10/18 20:59 Code Status & VTE Plan Code Status Full code VTE Prophylaxis Plan VTE Prophylaxis will be ordered: Yes _ (1) CHF exacerbation Heart failure type: (2) Atrial fibrillation Atrial fibrillation type: unspecified Qualified Code(s): I48.91 - Unspecified atrial fibrillation (3) HTN (hypertension) Hypertension type: essential hypertension Qualified Code(s): I10 - Essential (primary) hypertension
[2018-11-09] MEDS ORDERED: ALBUT/IPRATROP 3MG/0.5MG NEB 3 ML VIAL NEB PRN (23:50)
[2018-11-09] MEDS ORDERED: MAGNESIUM HYDROXIDE SUSP 30 ML UDC PO PRN (23:50)
[2018-11-09] MEDS ORDERED: ACETAMINOPHEN 325 MG TAB PO PRN (23:50)
[2018-11-09] MEDS ORDERED: NON-FORMULARY MEDICATION (Acetaminophen [Tylenol] 650 MG) PO PRN (23:50)
[2018-11-09] MEDS ORDERED: POLYETHYLENE (MIRALAX) 17 GM PACK PO PRN (23:50)
[2018-11-09] MEDS ORDERED: ACETAMINOPHEN 1000 MG/100 ML IV IV PRN (23:50)
[2018-11-09] MEDS ORDERED: ONDANSETRON INJ 2 MG/ML 2 ML VIAL IV PRN (23:50)
[2018-11-09] MEDS ORDERED: ALUMINUM/MAGNESIUM SUSP 30 ML UDC PO PRN (23:50)
[2018-11-10] MEDS ORDERED: cefTRIAXone SODIUM 1,000 MG/50 ML BAG IV SCH
[2018-11-10] MEDS: APIXABAN 5 MG TABLET PO SCH ×2 (00:38→07:59)
[2018-11-10] MEDS: ALBUMIN 25% 50 ML with FUROSEMIDE 40 MG IV SCH ×3 (00:57→15:39)
[2018-11-10] MEDS ORDERED: dilTIAZem HCl 5 MG/ML 5 ML VIAL IV STA (04:56)
[2018-11-10 07:26] LABS: Basophils # (auto) 0.01 K/uL (0-0.2); Basophils % (auto) 0.1 %; Eosinophils # (auto) 0.63 K/uL (0-0.5); Eosinophils % (auto) 9.1 %; Hematocrit (blood only) 30.7 % (42-52); Immature Granulocytes # (auto) 0.02 K/uL (0.00-0.02); Immature Granulocytes % (auto) 0.3 %; Lymphocytes # (auto) 0.68 K/uL (1.2-3.4); Lymphocytes % (auto) 9.9 %; Mean Corpuscular Hgb Conc 32.6 g/dL (32-36); Mean Corpuscular Volume 91.1 fL (80-100); Mean Platelet Volume 10.8 fL (7.4-10.4); Monocytes # (auto) 0.74 K/uL (0.11-0.59); Monocytes % (auto) 10.7 %; Neutrophils # (auto) 4.81 K/uL (1.4-6.5); Neutrophils % (auto) 69.9 %; Platelet Count 138 K/uL (130-400); RDW Coefficient of Variation 12.7 % (11.5-14.5); Red Blood Count 3.37 M/uL (4.7-6.1); White Blood Count 6.89 K/uL (4.8-10.8)
[2018-11-10 07:42] LABS: INR 1.1 (0.9-1.1); Partial Thromboplastin Ratio 1.1; Partial Thromboplastin Time 29.3 Seconds (21.0-31.0); Prothrombin Time 11.4 Seconds (9.0-12.0)
--- NOTE | 2018-11-10 07:46 | Nephrology Consultation ---
Date of Consultation November 10, 2018 Assessment & Plan (1) Acute kidney injury superimposed on chronic kidney disease: -- Non-oliguric -- Repeat renal US -- Clinically consistent with pre-renal azotemia and possible ATN; cannot exclude glomerulopathy at this time but would defer additional management pending further observation and repeat urine studies -- Metabolic profile otherwise acceptable -- No current indication for SENIOR NETWORK SECURITY ARCHITECT -- Lisinopril held -- Baseline creatinine 1.25 mg/dL -- UA demonstrates persistent proteinuria and microscopic hematuria: 3+ protein , 1-5 WBC and 5-10 RBC -- Will repeat 24 hour urine for protein -- Continue furosemide to encourage net negative fluid balance (adequate response to 40 mg IV yesterday): repeat 40 mg IV q 8 hours today -- Reasonable to provide IV albumin with diuretic (2) Atrial fibrillation: -- Cardiology consult pending -- Remains on amiodarone -- BP acceptable -- Appears otherwise relatively asymptomatic -- Reasonable to consider decreasing Eliquis to 2.5 mg twice daily due to kidney dysfunction (3) HTN (hypertension): -- BP accelerated -- Maintained on Cardura 4 mg daily -- AV ariana blocking medications avoided due to low heart rate -- Monitor with diuresis -- Consider LA CCB will defer additional management pending cardiology consultation (4) Anemia: -- Chronic stable -- Repeat iron profile with next blood work (5) Hypoalbuminemia: -- Stable -- Will repeat urine protein assessment for prospective monitoring -- Currently receiving IV replacement with Lasix x 4 doses of 12.5 gm 25% History of Present Illness Reason for Consultation: Acute on chronic renal insufficiency Requesting Physician: Javan Mathews MD Attending Physician: Javan Mathews MD History of Present Illness Mr. Kenyon Bonilla is an 88-year-old male with A3 proteinuria. I initially met Kenyon in September 2018 for evaluation of urine protein excretion is nearing nephrotic range. He had not had classic nephrotic syndrome (i.e. no accelerated hypertension, dyslipidemia or anasarca) but had experienced mild hypoalbuminemia and persistent lower extremity edema. The patient's medical history is notable for coronary artery disease (history of MN and CABG, stent x 2 to bypass grafts), PAD, chronic anemia, hypertension, BPH, and PAF. A cecal mass was resected in 2013. There is a remote history of urethral dilation. In August/September 2018, Kenyon developed new onset lower extremity edema. He was found to be hypoalbuminemic. He was admitted to [facility] for additional evaluation and management of LUIS FELIPE, edema and atrial fibrillation from September 26- . Serum creatinine peaked at 1.75 mg/dL on September 27. SENIOR NETWORK SECURITY ARCHITECT was not required. Creatinine at baseline had been 1.1 mg/dL. Creatinine improved to 1.25 mg/dL on October 04. The patient did not have evidence of proteinuria on urine studies in 2013. In February 2017, a urine dipstick in the urology clinic demonstrated trace blood and +2 protein. UA during hospital admission in September was notable for 4+ protein and 3+ blood. Urine microscopy at that time revealed 10-30 WBC and no RBC's. SPEP did not demonstrate a monoclonal process. Free light chain assay was normal. Cardioversion was performed on October 01. Kenyon tolerated the procedure well and remained in sinus rhythm at the time of post hospital follow up last month. He remained on amiodarone. Diuretics were held at the time of hospital discharge. Lower extremity edema improved. However, there was slight increase during post discharge follow up. Kenyon was managing edema with TEDS, feet elevation and low sodium diet. Furosemide 20 mg daily was restarted on October 06. Unfortunately, within the past couple of weeks, edema has started to return. He has noted a 15 lbs weight gain within the past couple of weeks. Kenyon also describes worsening shortness of breath. Review of systems is also notable for intermittent itching and a generalized rash which is described as ongoing over the past few years. Kenyon denies any interval chest pain or palpitations. He denies syncope or presyncope. He has been maintained on lisinopril 20 mg daily. The dose was split due to a history of blood pressure issues. Portable chest x-ray obtained in the ED demonstrated increasing pulmonary interstitial edema and mild PVC. Small bilateral plueral effusions are fairly stable in appearance. EKG demonstrate recurrent atrial fibrillation/flutter with variable AV block and a ventricular rate of ~60 bpm. Creatinine is elevated at 1.75 mg/dL. Electrolytes are normal. Serum albumin remains reduced at 2.4 g/dL. The patient is non-oliguric. Allergies Allergy/AdvReac Type Severity Reaction Status Date / Time animal dander Allergy Unknown RESPIRATORY Verified 11/09/18 19:43 PROBLEMS Iodinated Contrast- Oral and Allergy Unknown "MILD Verified 11/09/18 19:43 IV Dye TICKLLING OF THROAT" mold Allergy Unknown RESPIRATORY Verified 11/09/18 19:43 PROBLEMS pollen extracts Allergy Unknown RESPIRATORY Verified 11/09/18 19:43 PROBLEMS Home Medications Home Medications Medication Instructions Recorded Confirmed Type Sildenafil Citrate 20 Mg 1 - 5 tab PO UD 09/26/18 11/09/18 History acetaminophen [Tylenol] 650 mg PO Q6H PRN 09/26/18 11/09/18 History apixaban [Eliquis] 5 mg PO BID 09/26/18 11/09/18 History coenzyme Q10 [Co Q-10] 100 mg PO DAILY 09/26/18 11/09/18 History cyanocobalamin (vitamin B-12) 500 mcg PO DAILY 09/26/18 11/09/18 History [Vitamin B-12] doxazosin 4 mg PO DAILY 09/26/18 11/09/18 History ezetimibe [Zetia] 10 mg PO QPM 09/26/18 11/09/18 History lisinopril [Zestril] 20 mg PO BID 09/26/18 11/09/18 History montelukast [Singulair] 10 mg PO PM 09/26/18 11/09/18 History nitroglycerin [Nitrostat] 0.4 mg SUBLINGUAL UD PRN 09/26/18 11/09/18 History pantoprazole [Protonix] 40 mg PO QPM 09/26/18 11/09/18 History simvastatin [Zocor] 10 mg PO QPM 09/26/18 11/09/18 History amiodarone [Pacerone] 400 mg PO QPM 11/09/18 11/09/18 History aspirin [Aspir-81] 81 mg PO QPM 11/09/18 11/09/18 History furosemide [Lasix] 20 mg PO DAILY PRN 11/09/18 11/09/18 History Patient History Medical History GI (gastrointestinal bleed) (Acute 11/13/13) Cecum mass (Acute 11/08/13) CAD (coronary artery disease) (Chronic) HTN (hypertension) (Chronic) Hypercholesterolemia (Chronic) H/O gastroesophageal reflux (GERD) (Chronic) Afib (Chronic) Intractable back pain (Acute) Asthma Allergy induced. History of heart attack 1980 Hypoalbuminemia Surgical History Post-operative state (Acute 11/08/13) Hx of CABG (Resolved) H/O right hemicolectomy (Resolved) Hx of heart artery stent 2 stents, one placed in 2006 and 2017 in the grafts Family History Other Family history non-contributory Social History marital status: Current Living Situation: Spouse current occupational status: retired Feels Safe at Home: Yes Safety Concerns: Feels Safe At This Time Smoking Status: Never smoker Second Hand Exposure: No Hx Alcohol Use: No Hx Substance Use: No Beliefs That Will Affect Care: None Communication Ability: Effective Review of Systems Constitutional: + weight gain; no fever, no chills and no weight loss Eyes: no problem reported Ear, Nose, Mouth, Throat: no problem reported Respiratory: + dyspnea and + dyspnea on exertion; no cough and no change in sputum Cardiovascular: + edema; no chest pain, no palpitations, no lightheadedness and no syncope Gastrointestinal: no abdominal pain and no problem reported Genitourinary (Male): no problem reported Musculoskeletal: no problem reported Integumentary: + rash, + dry skin and + pruritus Neurologic: no problem reported Psychiatric: no problem reported Hematologic / Lymphatic: no easy bleeding and no easy bruising Physical Exam 2 Vital Signs (Past 24 Hours): Last Vital Signs Temp 37.0 C 11/10/18 06:54 Pulse 58 L 11/10/18 07:35 Resp 19 11/10/18 06:54 BP 171/80 H 11/10/18 06:54 Pulse Ox 94 11/10/18 06:54 Constitutional: well developed, + frail appearing and + edematous; no acute distress Eyes: no scleral abnormality and no corneal abnormality ENMT: Mouth: no oropharynx abnormality and oral mucous membranes not dry Neck: trachea midline Thyroid: + abnormal thyroid Respiratory: Auscultation: lungs clear to auscultation bilaterally and + rales Cardiovascular: Heart Sounds: normal S1 and normal S2; no murmur and no cardiac rub Extremities: + edema Gastrointestinal (Abdomen): Percussion/Palpation: abdomen soft; abdomen nontender and no ascites Musculoskeletal: Head/Neck/Chest: + head abnormal to inspection; + evidence of head trauma Skin: + turgor decreased and + dry skin; no erythema Neurologic: Motor/Sensory: no tremor and no asterixis Results & Data Laboratory Results Laboratory Results - last 24 hr 11/09/18 11/09/18 11/09/18 18:45 18:45 20:20 WBC 6.35 RBC 3.61 L Hgb 10.8 L Hct 33.0 L MCV 91.4 MCH 29.9 MCHC 32.7 RDW Std Deviation 42.5 RDW Coeff of [place] 12.7 Plt Count 146 MPV 10.8 H Immature Gran % (Auto) 0.2 Neut % (Auto) 67.7 Lymph % (Auto) 13.9 [place] % (Auto) 9.6 Eos % (Auto) 8.3 Baso % (Auto) 0.3 Immature Gran # (Auto) 0.01 Neut # (Auto) 4.30 Lymph # (Auto) 0.88 L [place] # (Auto) 0.61 H Eos # (Auto) 0.53 H Baso # (Auto) 0.02 PT INR APTT PTT Ratio Sodium 138 Potassium 4.3 Chloride 102 Carbon Dioxide 28 Anion Gap 7.0 BUN 30 H Creatinine 1.74 H Est Cr Clr Drug Dosing 29.5 Est GFR ( Amer) 39.7 Est GFR (Non-Af Amer) 34.2 BUN/Creatinine Ratio 17.5 Glucose 135 H Calcium 8.6 Total Bilirubin 0.4 AST 18 ALT 18 Alkaline Phosphatase 85 Total Creatine Kinase 127 CK-MB (CK-2) 1.7 CK/CKMB % Calc 1.3 Troponin I 0.016 NT-Pro-B Natriuret Pep 2652 H Total Protein 6.1 L Albumin 2.4 L Globulin 3.7 Albumin/Globulin Ratio 0.7 L Lipase 105 Urine Color Yellow Urine Appearance Clear Urine pH 7.0 Ur Specific [place] 1.009 Urine Protein 3+ H Urine Glucose (UA) Negative Urine Ketones Negative Urine Blood 1+ H Urine Nitrite Negative Urine Bilirubin Negative Urine Urobilinogen Negative Ur Leukocyte Esterase Negative Urine WBC (Auto) 1-5 Urine RBC (Auto) 5-10 H U Hyaline Cast (Auto) 0 U Epithel Cells (Auto) 5-10 H Urine Bacteria (Auto) Negative 11/09/18 11/09/18 11/10/18 21:29 23:58 06:59 WBC 6.89 RBC 3.37 L Hgb 10.0 L Hct 30.7 L MCV 91.1 MCH 29.7 MCHC 32.6 RDW Std Deviation 42.0 RDW Coeff of [place] 12.7 Plt Count 138 MPV 10.8 H Immature Gran % (Auto) 0.3 Neut % (Auto) 69.9 Lymph % (Auto) 9.9 [place] % (Auto) 10.7 Eos % (Auto) 9.1 Baso % (Auto) 0.1 Immature Gran # (Auto) 0.02 Neut # (Auto) 4.81 Lymph # (Auto) 0.68 L [place] # (Auto) 0.74 H Eos # (Auto) 0.63 H Baso # (Auto) 0.01 PT INR APTT PTT Ratio Sodium Potassium Chloride Carbon Dioxide Anion Gap BUN Creatinine Est Cr Clr Drug Dosing Est GFR ( Amer) Est GFR (Non-Af Amer) BUN/Creatinine Ratio Glucose Calcium Total Bilirubin AST ALT Alkaline Phosphatase Total Creatine Kinase CK-MB (CK-2) CK/CKMB % Calc Troponin I 0.017 0.024 NT-Pro-B Natriuret Pep Total Protein Albumin Globulin Albumin/Globulin Ratio Lipase Urine Color Urine Appearance Urine pH Ur Specific [place] Urine Protein Urine Glucose (UA) Urine Ketones Urine Blood Urine Nitrite Urine Bilirubin Urine Urobilinogen Ur Leukocyte Esterase Urine WBC (Auto) Urine RBC (Auto) U Hyaline Cast (Auto) U Epithel Cells (Auto) Urine Bacteria (Auto) 11/10/18 11/10/18 06:59 06:59 WBC RBC Hgb Hct MCV MCH MCHC RDW Std Deviation RDW Coeff of [place] Plt Count MPV Immature Gran % (Auto) Neut % (Auto) Lymph % (Auto) [place] % (Auto) Eos % (Auto) Baso % (Auto) Immature Gran # (Auto) Neut # (Auto) Lymph # (Auto) [place] # (Auto) Eos # (Auto) Baso # (Auto) PT 11.4 INR 1.1 APTT 29.3 PTT Ratio 1.1 Sodium 137 Potassium 4.2 Chloride 105 Carbon Dioxide 29 Anion Gap 3.0 BUN 31 H Creatinine 1.65 H Est Cr Clr Drug Dosing 30.6 Est GFR ( Amer) 42.3 Est GFR (Non-Af Amer) 36.5 BUN/Creatinine Ratio 18.9 Glucose 129 H Calcium 8.4 L Total Bilirubin 0.4 AST 17 ALT 15 Alkaline Phosphatase 72 Total Creatine Kinase CK-MB (CK-2) CK/CKMB % Calc Troponin I NT-Pro-B Natriuret Pep Total Protein 5.7 L Albumin 2.4 L Globulin 3.3 Albumin/Globulin Ratio 0.7 L Lipase Urine Color Urine Appearance Urine pH Ur Specific [place] Urine Protein Urine Glucose (UA) Urine Ketones Urine Blood Urine Nitrite Urine Bilirubin Urine Urobilinogen Ur Leukocyte Esterase Urine WBC (Auto) Urine RBC (Auto) U Hyaline Cast (Auto) U Epithel Cells (Auto) Urine Bacteria (Auto) Diagnostic Findings XR chest 1V portable CLINICAL HISTORY: Chest Pain COMPARISON STUDY: Chest radiograph September 26, 2018. FINDINGS: There are median sternotomy wires. There are small bilateral pleural effusions. There is no pneumothorax. Mild bibasilar opacities favor atelectasis. Pulmonary edema has developed since prior exam. Moderate cardiomegaly is noted. IMPRESSION: 1. Interval development of mild pulmonary edema with small bilateral pleural effusions. 2. Bibasilar opacities suggestive of atelectasis. ECG Rhythm: atrial fibrillation and atrial flutter _ (1) Atrial fibrillation Atrial fibrillation type: unspecified Qualified Code(s): I48.91 - Unspecified atrial fibrillation (2) HTN (hypertension) Hypertension type: essential hypertension Qualified Code(s): I10 - Essential (primary) hypertension
[2018-11-10 07:57] LABS: Albumin Level 2.4 gm/dl (3.4-5.0); BUN Creatinine Ratio 18.9 (10-20); Calcium 8.4 mg/dl (8.5-10.1); Creatinine Clr Calc Pharmacy 30.6 ml/min; Est GFR (African American) 42.3; Est GFR (Non-African American) 36.5; Potassium 4.2 mmol/L (3.5-5.1)
[2018-11-10 07:58] LABS: Albumin Globulin Ratio 0.7 (0.9-2); Bilirubin,Total 0.4 mg/dl (0.2-1); Globulin 3.3 gm/dl (2.5-4.0); Total Protein 5.7 gm/dl (6.4-8.2)
[2018-11-10] MEDS: CYANOCOBALAMIN 500 MCG TABLET (VITAMIN B-12) PO SCH (07:59)
[2018-11-10] MEDS: DOXAZosin MESYLATE 4 MG TAB PO SCH (07:59)
[2018-11-10] MEDS ORDERED: NON-FORMULARY MEDICATION (Coenzyme Q10 [Co Q-10] 100 MG) PO SCH (09:00)
--- NOTE | 2018-11-10 15:22 | Cardiology Consultation ---
Date of Consultation November 10, 2018 Assessment & Plan (1) CHF exacerbation: Suspect this is acute on chronic diastolic CHF. He does have a history of normal left ventricular systolic function. The patient was not following daily weights and sliding-scale diuretics. He was using Lasix 20 mg on occasion despite his increasing weight. His atrial dysrhythmia could be a factor, however, his rates are well controlled. Suspect his significant hypoalbuminemia is a contributing factor. Agree with use of intravenous albumin , however, it is benefit will likely be temporary best. Would benefit from intravenous diuresis. The case was discussed with Dr. Ramirez at the patient's bedside. (2) Atrial fibrillation: His ventricular response is adequately controlled on his current medical regimen. This dysrhythmia could be a factor in his recent decompensation, however, I do not feel it is a major contributor. Do not feel that electrical cardioversion is necessary at this time. Agree with reducing the dose of Eliquis to 2.5 mg b.i.d.. (3) CAD (coronary artery disease): The patient had 5 for 6 bypasses performed back in 1979. He has also had stents placed in the right coronary artery graft in 2006, and obtuse marginal graft in 2017. Results of those procedures are not available for our review. (4) HTN (hypertension): Adequate control on his current medical regimen. History of Present Illness Attending Physician: Patrick Perry DO History of Present Illness Mr. Bonilla is an 88-year-old male admitted last evening with hypervolemia, and complaints of exertional dyspnea. This consultation was order to systems cardiac management. Of note, the patient typically follows with Dr. Mabry. The patient was most recently hospitalized in mid September with mildly decompensated congestive heart failure and atrial fibrillation with a rapid ventricular response. The patient had been changed from Tikosyn to amiodarone several weeks before that hospitalization. Dr. Mabry performed an electrical cardioversion which was only successful for approximately 6 days according to the patient. Since that hospital discharge, the patient has noticed a 15 lb weight gain, progressive lower extremity edema, and progressive exertional dyspnea. He has also noted increasing abdominal girth and early satiety. He has not experienced any exertional chest pain. He also denies palpitations related to his atrial fibrillation. The patient has a longstanding history of coronary artery disease. He underwent a 5 or 6 vessel bypass back in 1979. He eventually required a stent in the saphenous vein graft to his right coronary artery in 2006. He had a stent placed in the saphenous vein graft to an OM branch in December 2016. These procedures were all performed in [place]. The patient just transferred his care to Dr. Mabry over the summer months. Currently, patient is resting comfortably in bed without complaints. He did receive 1 dose of intravenous furosemide in the emergency room. He has also received an albumin infusion with 2 more infusions planned. Past medical and surgical history 1. Coronary artery disease-see above 2. CABG-1979 3. SVG to RCA stent-2006 4. SVG to OM stent-December 2016 5. Preserved LV dysfunction 6. Fixed inferior defect on nuclear study-December 2016 7. Hypertension 8. Hypercholesterolemia 9. Paroxysmal atrial fibrillation 10. Patent foramen ovale 11. Peripheral vascular disease 12. Diabetes mellitus 13. Chronic renal failure 14. Anemia of chronic disease 15. BPH 16. 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 Right hemicolectomy-October 2013 19. 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 Allergies Allergy/AdvReac Type Severity Reaction Status Date / Time animal dander Allergy Unknown RESPIRATORY Verified 11/09/18 19:43 PROBLEMS Iodinated Contrast- Oral and Allergy Unknown "MILD Verified 11/09/18 19:43 IV Dye TICKLLING OF THROAT" mold Allergy Unknown RESPIRATORY Verified 11/09/18 19:43 PROBLEMS pollen extracts Allergy Unknown RESPIRATORY Verified 11/09/18 19:43 PROBLEMS Home Medications Home Medications Medication Instructions Recorded Confirmed Type Sildenafil Citrate 20 Mg 1 - 5 tab PO UD 09/26/18 11/09/18 History acetaminophen [Tylenol] 650 mg PO Q6H PRN 09/26/18 11/09/18 History apixaban [Eliquis] 5 mg PO BID 09/26/18 11/09/18 History coenzyme Q10 [Co Q-10] 100 mg PO DAILY 09/26/18 11/09/18 History cyanocobalamin (vitamin B-12) 500 mcg PO DAILY 09/26/18 11/09/18 History [Vitamin B-12] doxazosin 4 mg PO DAILY 09/26/18 11/09/18 History ezetimibe [Zetia] 10 mg PO QPM 09/26/18 11/09/18 History lisinopril [Zestril] 20 mg PO BID 09/26/18 11/09/18 History montelukast [Singulair] 10 mg PO PM 09/26/18 11/09/18 History nitroglycerin [Nitrostat] 0.4 mg SUBLINGUAL UD PRN 09/26/18 11/09/18 History pantoprazole [Protonix] 40 mg PO QPM 09/26/18 11/09/18 History simvastatin [Zocor] 10 mg PO QPM 09/26/18 11/09/18 History amiodarone [Pacerone] 400 mg PO QPM 11/09/18 11/09/18 History aspirin [Aspir-81] 81 mg PO QPM 11/09/18 11/09/18 History furosemide [Lasix] 20 mg PO DAILY PRN 11/09/18 11/09/18 History Patient History Medical History GI (gastrointestinal bleed) (Acute 11/13/13) Cecum mass (Acute 11/08/13) CAD (coronary artery disease) (Chronic) HTN (hypertension) (Chronic) Hypercholesterolemia (Chronic) H/O gastroesophageal reflux (GERD) (Chronic) Afib (Chronic) Intractable back pain (Acute) Asthma Allergy induced. History of heart attack 1980 Hypoalbuminemia Surgical History Post-operative state (Acute 11/08/13) Hx of CABG (Resolved) H/O right hemicolectomy (Resolved) Hx of heart artery stent 2 stents, one placed in 2006 and 2017 in the grafts Family History Other Family history non-contributory Social History marital status: Current Living Situation: Spouse current occupational status: retired Feels Safe at Home: Yes Safety Concerns: Feels Safe At This Time Smoking Status: Never smoker Second Hand Exposure: No Hx Alcohol Use: No Hx Substance Use: No Beliefs That Will Affect Care: None Communication Ability: Effective Physical Exam 2 Vital Signs (Past 24 Hours): Last Vital Signs Temp 36.9 C 11/10/18 11:30 Pulse 58 L 11/10/18 11:30 Resp 16 11/10/18 11:30 BP 151/72 H 11/10/18 11:30 Pulse Ox 92 11/10/18 11:30 Physical Exam: In general is well-developed well-nourished white male lying supine in bed without complaints. HEENT exam is negative. Neck is supple with full carotid upstrokes. No obvious bruits. Jugular venous pressure is difficult to assess. Cardiovascular exam reveals an irregular rhythm with distant heart sounds. No obvious murmurs or S3. Lungs note bibasilar crackles but no rhonchi or wheezes. Abdomen is obese without bruits. Extremities reveal 2+ pretibial and 1+ edema in the thighs. Results & Data Laboratory Results CBC notes a hemoglobin of 10.0, hematocrit 30.7, white count 6.8, platelet count [id number]. Electrolytes notice sodium 137, potassium 4.2, chloride 105, bicarb 29, BUN 31, creatinine 1.65, glucose 129. Three troponins are negative at 0.016, 0.017, and 0.024. BNP is elevated 2652. Albumin is low at 2.4. Diagnostic Findings EKG on presentation noted atrial flutter with a variable but controlled ventricular response. aircraft pilot now notes atrial fibrillation with a ventricular response of 50-70 beats per minute. Chest x-ray shows cardiomegaly and mild congestive changes. _ (1) CHF exacerbation Heart failure type: (2) Atrial fibrillation Atrial fibrillation type: unspecified Qualified Code(s): I48.91 - Unspecified atrial fibrillation (3) HTN (hypertension) Hypertension type: essential hypertension Qualified Code(s): I10 - Essential (primary) hypertension
[2018-11-10] MEDS ORDERED: PETROLATUM 16 OZ JAR EXT PRN (16:35)
--- NOTE | 2018-11-10 16:42 | Family Medicine Progress Note ---
Date of Service November 10, 2018 Assessment & Plan (1) CHF exacerbation: CHF exacerbation: -serial cardiac enzymes (trops negative, BNP 2650), daily EKG's -Continue amiodarone 400 mg, apixaban 2.5 mg BID, asa 81 mg, doxazosin 4 mg daily. -Hold lisinopril 20 mg BID d/t LUIS FELIPE -Albumin 25 g with 40 mg of furosemide IV every 8 hours x3. -Patient has no recollection of diagnosis of CHF and thinks he has in fact been told he does not have CHF -Suspect this is likely acute on chronic diastolic CHF -Will provide education regarding salt intake, weights, sliding scale Lasix, etc. -Cards notes afib could be a factor, however, rates are well controlled, and significant hypoalbuminemia is a contributing factor. -Appreciate cardiology and nephrology input Atrial fibrillation: -Rates adequately controlled on his current regimen. -May be contributing to presentation, however, unlikely. -Decrease eliquis to 2.5 bid 2/2 LUIS FELIPE -Continue amiodarone HTN (hypertension): -Currently adequately controlled with Cardura 4mg -AV ariana blocking medications avoided due to low heart rate -Monitor with diuresis Acute kidney injury superimposed on chronic kidney disease: -Hold lisinopril -Monitor labs: Baseline creatinine 1.2 mg/dL -Repeat renal US -Per nephro: �Clinically consistent with pre-renal azotemia and possible ATN; cannot exclude glomerulopathy at this time but would defer additional management pending further observation and repeat urine studies� -UA shows proteinuria, microscopic hematuria: 3+ protein, 1-5 WBC and 5-10 RBC -Repeat 24 hour urine for protein -Continue furosemide CAD (coronary artery disease): -H/O CABG and PCI with stenting in 2006. Obtuse marginal graft 2016. -Medical management: ASA, Ezetimibe, simvastatin -Last echo 2013, unknown results Hypercholesterolemia: -Continue simvastatin 10 mg daily and Zetia 10 mg daily Anemia: -Chronic, stable -Repeat iron profile with next blood work Hypoalbuminemia: -Stable, will repeat urine protein assessment for prospective monitoring per nephro -Currently receiving IV Lasix x 4 doses of 12.5 gm 25% Urticaria -May use home triamcinolone -Ordered vaseline hs (2) Acute kidney injury superimposed on chronic kidney disease: (3) Atrial fibrillation: (4) Edema, peripheral: (5) Hypoalbuminemia: (6) Acute kidney injury: (7) HTN (hypertension): (8) Hypercholesterolemia: Supervising Physician Co-Signing Physician Notes I personally examined the patient and verified all [place] points of history and exam, discussed case, and agree with decision making with Dr Sanchez. Feeling better breathing better but notes he is not quite back to baseline. No other acute complaints. Vitals noted, in general he is awake alert pleasant no distress. HEENT normocephalic atraumatic mucous membranes are moist. Lungs show faint wet sounding wheeze diffusely and may be a bit diminished bibasilar. Acute on chronic diastolic CHF�continue diuresis, continue supportive care Otherwise as above Subjective Patient subjectively feels much better than he did on presentation last evening. States his shortness of breath is greatly improved. He is also complaining of itchy skin on both legs from lower thigh to upper calf, mostly medially. Was told by derm yesterday that it was likely dry skin. Constitutional: + weight gain; no fever and no chills Eyes: + corrective lenses Respiratory: + cough and + dyspnea on exertion Cardiovascular: + dyspnea on exertion and + edema; no chest pain, no chest pain at rest and no radiating jaw, neck or arm pain Gastrointestinal: + bloating (gas pain); no abdominal pain Integumentary: + urticaria (medial mid-leg, bilaterally) Physical Exam 2 Vital Signs (Past 24 Hours): Last Vital Signs Temp 37.2 C 11/10/18 15:32 Pulse 63 11/10/18 15:32 Resp 20 11/10/18 15:32 BP 138/71 11/10/18 15:32 Pulse Ox 95 11/10/18 15:32 Constitutional: WD/WN, vitals as above Eyes: PERRL, conjunctivae normal, anicteric sclerae ENMT: external ear and nose normal, oropharynx normal Neck: normal visual inspection Respiratory: normal respiratory effort Auscultation: + crackles (bibasilar ) Cardiovascular: Rate/Rhythm: regular rate; + abnormal rhythm (irregular rhythm ) Heart Sounds: normal S1 and normal S2 (loud S2) Extremities: + pedal edema; no calf tenderness Gastrointestinal (Abdomen): normal bowel sounds, soft, nontender, no hepatosplenomegaly Musculoskeletal: no cyanosis or clubbing, extremities motor strength 5/5 Skin: no rashes, warm and dry (scant excoriations on inner aspects of legs. No fungal areas noted, no macular/papular lesions noted) Scar from previous CABG vein retrieval on medial L leg. Neurologic: PERRL, EOMI, accommodation nl, no face palsy, no dysarthria Psychiatric: A+Ox3, euthymic affect Results & Data Laboratory Results 11/10/18 11/10/18 11/10/18 Range/Units 06:59 06:59 06:59 WBC 6.89 (4.8-10.8) K/uL RBC 3.37 L (4.7-6.1) M/uL Hgb 10.0 L (14.0-18.0) g/dL Hct 30.7 L (42-52) % MCV 91.1 (80-100) fL MCH 29.7 (25-34) pg MCHC 32.6 (32-36) g/dL RDW Std Deviation 42.0 (36.4-46.3) fL RDW Coeff of [place] 12.7 (11.5-14.5) % Plt Count 138 (130-400) K/uL MPV 10.8 H (7.4-10.4) fL Immature Gran % (Auto) 0.3 % Neut % (Auto) 69.9 % Lymph % (Auto) 9.9 % [place] % (Auto) 10.7 % Eos % (Auto) 9.1 % Baso % (Auto) 0.1 % Immature Gran # (Auto) 0.02 (0.00-0.02) K/uL Neut # (Auto) 4.81 (1.4-6.5) K/uL Lymph # (Auto) 0.68 L (1.2-3.4) K/uL [place] # (Auto) 0.74 H (0.11-0.59) K/uL Eos # (Auto) 0.63 H (0-0.5) K/uL Baso # (Auto) 0.01 (0-0.2) K/uL PT 11.4 (9.0-12.0) Seconds INR 1.1 (0.9-1.1) APTT 29.3 (21.0-31.0) Seconds PTT Ratio 1.1 Sodium 137 (136-145) mmol/L Potassium 4.2 (3.5-5.1) mmol/L Chloride 105 (98-107) mmol/L Carbon Dioxide 29 (21-32) mmol/L Anion Gap 3.0 (3-11) BUN 31 H (7-18) mg/dl Creatinine 1.65 H (0.6-1.4) mg/dl Est Cr Clr Drug Dosing 30.6 ml/min Est GFR ( Amer) 42.3 Est GFR (Non-Af Amer) 36.5 BUN/Creatinine Ratio 18.9 (10-20) Glucose 129 H (70-99) mg/dl Calcium 8.4 L (8.5-10.1) mg/dl Total Bilirubin 0.4 (0.2-1) mg/dl AST 17 (15-37) U/L ALT 15 (12-78) U/L Alkaline Phosphatase 72 (45-117) U/L Total Creatine Kinase (39-308) U/L CK-MB (CK-2) (0.5-3.6) ng/ml CK/CKMB % Calc (0-3.0) Troponin I (0-0.045) ng/ml NT-Pro-B Natriuret Pep (0-1800) pg/ml Total Protein 5.7 L (6.4-8.2) gm/dl Albumin 2.4 L (3.4-5.0) gm/dl Globulin 3.3 (2.5-4.0) gm/dl Albumin/Globulin Ratio 0.7 L (0.9-2) Lipase (73-393) U/L Urine Color Urine Appearance (Clear) Urine pH (4.5-7.5) Ur Specific [place] (1.000-1.030) Urine Protein (Negative) Urine Glucose (UA) (Negative) Urine Ketones (Negative) Urine Blood (Negative) Urine Nitrite (Negative) Urine Bilirubin (Negative) Urine Urobilinogen (Negative) Ur Leukocyte Esterase (Negative) Urine WBC (Auto) (0-5) /hpf Urine RBC (Auto) (0-4) /hpf U Hyaline Cast (Auto) (0-5) /lpf U Epithel Cells (Auto) (0-5) /lpf Urine Bacteria (Auto) (Negative) 11/09/18 11/09/18 11/09/18 Range/Units 23:58 21:29 20:20 WBC (4.8-10.8) K/uL RBC (4.7-6.1) M/uL Hgb (14.0-18.0) g/dL Hct (42-52) % MCV (80-100) fL MCH (25-34) pg MCHC (32-36) g/dL RDW Std Deviation (36.4-46.3) fL RDW Coeff of [place] (11.5-14.5) % Plt Count (130-400) K/uL MPV (7.4-10.4) fL Immature Gran % (Auto) % Neut % (Auto) % Lymph % (Auto) % [place] % (Auto) % Eos % (Auto) % Baso % (Auto) % Immature Gran # (Auto) (0.00-0.02) K/uL Neut # (Auto) (1.4-6.5) K/uL Lymph # (Auto) (1.2-3.4) K/uL [place] # (Auto) (0.11-0.59) K/uL Eos # (Auto) (0-0.5) K/uL Baso # (Auto) (0-0.2) K/uL PT (9.0-12.0) Seconds INR (0.9-1.1) APTT (21.0-31.0) Seconds PTT Ratio Sodium (136-145) mmol/L Potassium (3.5-5.1) mmol/L Chloride (98-107) mmol/L Carbon Dioxide (21-32) mmol/L Anion Gap (3-11) BUN (7-18) mg/dl Creatinine (0.6-1.4) mg/dl Est Cr Clr Drug Dosing ml/min Est GFR ( Amer) Est GFR (Non-Af Amer) BUN/Creatinine Ratio (10-20) Glucose (70-99) mg/dl Calcium (8.5-10.1) mg/dl Total Bilirubin (0.2-1) mg/dl AST (15-37) U/L ALT (12-78) U/L Alkaline Phosphatase (45-117) U/L Total Creatine Kinase (39-308) U/L CK-MB (CK-2) (0.5-3.6) ng/ml CK/CKMB % Calc (0-3.0) Troponin I 0.024 0.017 (0-0.045) ng/ml NT-Pro-B Natriuret Pep (0-1800) pg/ml Total Protein (6.4-8.2) gm/dl Albumin (3.4-5.0) gm/dl Globulin (2.5-4.0) gm/dl Albumin/Globulin Ratio (0.9-2) Lipase (73-393) U/L Urine Color Yellow Urine Appearance Clear (Clear) Urine pH 7.0 (4.5-7.5) Ur Specific [place] 1.009 (1.000-1.030) Urine Protein 3+ H (Negative) Urine Glucose (UA) Negative (Negative) Urine Ketones Negative (Negative) Urine Blood 1+ H (Negative) Urine Nitrite Negative (Negative) Urine Bilirubin Negative (Negative) Urine Urobilinogen Negative (Negative) Ur Leukocyte Esterase Negative (Negative) Urine WBC (Auto) 1-5 (0-5) /hpf Urine RBC (Auto) 5-10 H (0-4) /hpf U Hyaline Cast (Auto) 0 (0-5) /lpf U Epithel Cells (Auto) 5-10 H (0-5) /lpf Urine Bacteria (Auto) Negative (Negative) 11/09/18 11/09/18 Range/Units 18:45 18:45 WBC 6.35 (4.8-10.8) K/uL RBC 3.61 L (4.7-6.1) M/uL Hgb 10.8 L (14.0-18.0) g/dL Hct 33.0 L (42-52) % MCV 91.4 (80-100) fL MCH 29.9 (25-34) pg MCHC 32.7 (32-36) g/dL RDW Std Deviation 42.5 (36.4-46.3) fL RDW Coeff of [place] 12.7 (11.5-14.5) % Plt Count 146 (130-400) K/uL MPV 10.8 H (7.4-10.4) fL Immature Gran % (Auto) 0.2 % Neut % (Auto) 67.7 % Lymph % (Auto) 13.9 % [place] % (Auto) 9.6 % Eos % (Auto) 8.3 % Baso % (Auto) 0.3 % Immature Gran # (Auto) 0.01 (0.00-0.02) K/uL Neut # (Auto) 4.30 (1.4-6.5) K/uL Lymph # (Auto) 0.88 L (1.2-3.4) K/uL [place] # (Auto) 0.61 H (0.11-0.59) K/uL Eos # (Auto) 0.53 H (0-0.5) K/uL Baso # (Auto) 0.02 (0-0.2) K/uL PT (9.0-12.0) Seconds INR (0.9-1.1) APTT (21.0-31.0) Seconds PTT Ratio Sodium 138 (136-145) mmol/L Potassium 4.3 (3.5-5.1) mmol/L Chloride 102 (98-107) mmol/L Carbon Dioxide 28 (21-32) mmol/L Anion Gap 7.0 (3-11) BUN 30 H (7-18) mg/dl Creatinine 1.74 H (0.6-1.4) mg/dl Est Cr Clr Drug Dosing 29.5 ml/min Est GFR ( Amer) 39.7 Est GFR (Non-Af Amer) 34.2 BUN/Creatinine Ratio 17.5 (10-20) Glucose 135 H (70-99) mg/dl Calcium 8.6 (8.5-10.1) mg/dl Total Bilirubin 0.4 (0.2-1) mg/dl AST 18 (15-37) U/L ALT 18 (12-78) U/L Alkaline Phosphatase 85 (45-117) U/L Total Creatine Kinase 127 (39-308) U/L CK-MB (CK-2) 1.7 (0.5-3.6) ng/ml CK/CKMB % Calc 1.3 (0-3.0) Troponin I 0.016 (0-0.045) ng/ml NT-Pro-B Natriuret Pep 2652 H (0-1800) pg/ml Total Protein 6.1 L (6.4-8.2) gm/dl Albumin 2.4 L (3.4-5.0) gm/dl Globulin 3.7 (2.5-4.0) gm/dl Albumin/Globulin Ratio 0.7 L (0.9-2) Lipase 105 (73-393) U/L Urine Color Urine Appearance (Clear) Urine pH (4.5-7.5) Ur Specific [place] (1.000-1.030) Urine Protein (Negative) Urine Glucose (UA) (Negative) Urine Ketones (Negative) Urine Blood (Negative) Urine Nitrite (Negative) Urine Bilirubin (Negative) Urine Urobilinogen (Negative) Ur Leukocyte Esterase (Negative) Urine WBC (Auto) (0-5) /hpf Urine RBC (Auto) (0-4) /hpf U Hyaline Cast (Auto) (0-5) /lpf U Epithel Cells (Auto) (0-5) /lpf Urine Bacteria (Auto) (Negative) Medications Administered Current Inpatient Medications Acetaminophen (Ofirmev) 1,000 mg IV Q8H PRN PRN Reason: Pain or Fever Stop: 12/09/18 23:49 Acetaminophen (Tylenol) 650 mg PO Q4H PRN PRN Reason: Pain or Fever Stop: 12/09/18 23:49 Al Hydrox/Mg Hydrox/Simethicone (Maalox) 15 ml PO Q4H PRN PRN Reason: Dyspepsia Stop: 12/09/18 23:49 Albuterol (Duoneb) 3 ml NEB Q2H PRN PRN Reason: dyspnea Stop: 12/09/18 23:49 Amiodarone HCl (Cordarone) 400 mg PO QPM [facility] Stop: 12/10/18 20:59 Apixaban (Eliquis) 2.5 mg PO BID [facility] Stop: 12/10/18 20:59 Aspirin (Ecotrin Ectab) 81 mg PO QPM [facility] Stop: 12/10/18 20:59 Cyanocobalamin (Vitamin B-12) 500 mcg PO DAILY [facility] Stop: 12/10/18 08:59 Last Admin: 11/10/18 07:59 Dose: 500 mcg Diphenhydramine HCl (Benadryl) 50 mg PO Q6H PRN PRN Reason: Itching Stop: 12/10/18 00:00 Last Admin: 11/10/18 00:17 Dose: 50 mg Doxazosin Mesylate (Cardura) 4 mg PO DAILY [facility] Stop: 12/10/18 08:59 Last Admin: 11/10/18 07:59 Dose: 4 mg Ezetimibe (Zetia) 10 mg PO QPM [facility] Stop: 12/10/18 20:59 Emollient Ointment (Petrolatum) 3 oz EXT HS PRN PRN Reason: Itching Stop: 12/10/18 16:34 Furosemide 40 mg/ Albumin (Human) 54 mls @ 54 mls/hr IV Q8H [facility] Stop: 11/11/18 00:59 Last Admin: 11/10/18 15:39 Dose: 54 mls/hr Ceftriaxone Sodium (Rocephin) 1,000 mg in 50 mls @ 100 mls/hr IV DAILY@0000 [facility] Stop: 11/17/18 00:00 Last Infusion: 11/10/18 01:00 Dose: Infused Magnesium Hydroxide (Milk Of Magnesia) 30 ml PO Q12H PRN PRN Reason: Constipation Stop: 12/09/18 23:49 Montelukast Sodium (Singulair) 10 mg PO PM [facility] Stop: 12/10/18 20:59 Ondansetron HCl (Zofran) 4 mg IV Q6H PRN PRN Reason: NAUSEA/VOMITING Stop: 12/09/18 23:49 Pantoprazole Sodium (Protonix) 40 mg PO QPM [facility] Stop: 12/10/18 20:59 Polyethylene Glycol (Miralax Powder Packet) 17 gm PO DAILY PRN PRN Reason: Constipation Stop: 12/09/18 23:49 Simvastatin (Zocor) 10 mg PO QPM [facility] Stop: 12/10/18 20:59 Resident Activity Tracking Resident Involvement: Resident Care Provided Care Provided: [facility] Medicine _ (1) CHF exacerbation Heart failure type: (2) Atrial fibrillation Atrial fibrillation type: unspecified Qualified Code(s): I48.91 - Unspecified atrial fibrillation (3) HTN (hypertension) Hypertension type: essential hypertension Qualified Code(s): I10 - Essential (primary) hypertension
[2018-11-10] MEDS ORDERED: Nursing to Pharmacy Communication ONE (19:17)
[2018-11-10] MEDS ORDERED: [UNRECOGNIZED DRUG - OTHER] EXT PRN (19:47)
[2018-11-10] MEDS: MONTELUKAST SODIUM 10 MG TABLET PO SCH (21:08)
[2018-11-10] MEDS: AMIODARONE 200 MG TAB PO SCH (21:08)
[2018-11-10] MEDS: SIMVASTATIN 10 MG TAB PO SCH (21:08)
[2018-11-10] MEDS: EZETIMIBE 10 MG TABLET PO SCH (21:08)
[2018-11-10] MEDS: ASPIRIN 81 MG ECTAB PO SCH (21:08)
[2018-11-10] MEDS: PANTOprazole 40 MG TAB PO SCH (21:08)
[2018-11-10] MEDS: APIXABAN 2.5 MG TAB PO SCH (21:10)
[2018-11-11] MEDS: ALBUMIN 25% 50 ML with FUROSEMIDE 40 MG IV SCH
--- NOTE | 2018-11-11 00:23 | Emergency Department Note ---
Entered by Ev Trammell acting as a scribe for Cooper Hatfield MD History of Present Illness General Chief complaint: Shortness of Breath/Dyspnea Stated complaint: SOB, RETAINING FLUID Time Seen by Provider: 11/09/18 18:13 Source: patient Mode of arrival: ambulatory Limitations: no limitations History of Present Illness Onset (ago): day(s) 1 Location: chest Radiation: non-radiation Pain Consistency: + constant Relieved By: + none Exacerbated By: + none Associated symptoms: no chest pain The patient is an 88 year old male who presents to the Emergency Room with complaints of worsening shortness of breath for the past 1 days. His pulse ox is 96% on room air. The patient was recently admitted to the hospital and diagnosed with CHF. He was started on 20 mg of Lasix daily. He also reports he has been told he is in kidney failure and follows with Dr. Ramirez. Since early September of 2018, he has noticed a 15 pound weight gain and states his abdomen and legs feel tight. He notes he cannot walk more than a few feet without feeling short of breath and also cannot dress without feeling short of breath. The patient does take daily Eliquis. He denies any chest pain. He notes he did call his PCP this afternoon and was told to come to the ED. Home Medications Home Medications Medication Instructions Recorded Confirmed Type Sildenafil Citrate 20 Mg 1 - 5 tab PO UD 09/26/18 11/09/18 History acetaminophen [Tylenol] 650 mg PO Q6H PRN 09/26/18 11/09/18 History apixaban [Eliquis] 5 mg PO BID 09/26/18 11/09/18 History coenzyme Q10 [Co Q-10] 100 mg PO DAILY 09/26/18 11/09/18 History cyanocobalamin (vitamin B-12) 500 mcg PO DAILY 09/26/18 11/09/18 History [Vitamin B-12] doxazosin 4 mg PO DAILY 09/26/18 11/09/18 History ezetimibe [Zetia] 10 mg PO QPM 09/26/18 11/09/18 History lisinopril [Zestril] 20 mg PO BID 09/26/18 11/09/18 History montelukast [Singulair] 10 mg PO PM 09/26/18 11/09/18 History nitroglycerin [Nitrostat] 0.4 mg SUBLINGUAL UD PRN 09/26/18 11/09/18 History pantoprazole [Protonix] 40 mg PO QPM 09/26/18 11/09/18 History simvastatin [Zocor] 10 mg PO QPM 09/26/18 11/09/18 History amiodarone [Pacerone] 400 mg PO QPM 11/09/18 11/09/18 History aspirin [Aspir-81] 81 mg PO QPM 11/09/18 11/09/18 History furosemide [Lasix] 20 mg PO DAILY PRN 11/09/18 11/09/18 History Allergies Allergy/AdvReac Type Severity Reaction Status Date / Time animal dander Allergy Unknown RESPIRATORY Verified 11/09/18 19:43 PROBLEMS Iodinated Contrast- Oral and Allergy Unknown "MILD Verified 11/09/18 19:43 IV Dye TICKLLING OF THROAT" mold Allergy Unknown RESPIRATORY Verified 11/09/18 19:43 PROBLEMS pollen extracts Allergy Unknown RESPIRATORY Verified 11/09/18 19:43 PROBLEMS Past Med/Surg History Medical History GI (gastrointestinal bleed) (Acute 11/13/13) Cecum mass (Acute 11/08/13) CAD (coronary artery disease) (Chronic) HTN (hypertension) (Chronic) Hypercholesterolemia (Chronic) H/O gastroesophageal reflux (GERD) (Chronic) Afib (Chronic) Intractable back pain (Acute) Asthma Allergy induced. History of heart attack 1980 Hypoalbuminemia Surgical History Post-operative state (Acute 11/08/13) Hx of CABG (Resolved) H/O right hemicolectomy (Resolved) Hx of heart artery stent 2 stents, one placed in 2006 and 2017 in the grafts Family History Other Family history non-contributory Social History marital status: Current Living Situation: Spouse current occupational status: retired Feels Safe at Home: Yes Safety Concerns: Feels Safe At This Time Smoking Status: Never smoker Second Hand Exposure: No Hx Alcohol Use: No Hx Substance Use: No Beliefs That Will Affect Care: None Communication Ability: Effective Review of Systems See HPI for pertinent positives & negatives. and A total of 10 systems reviewed and were otherwise negative Physical Exam Vital Signs Vital Signs - 24 hr 11/10/18 04:06 11/10/18 05:52 11/10/18 06:54 Temperature 36.7 C 37.0 C Temperature Source Oral Oral Pulse Rate Pulse Rate [Finger] 62 59 L Respiratory Rate 16 19 Respiratory Effort / Characteristics Non-Labored Respiratory Depth Normal Respiratory Pattern Regular Blood Pressure [Left Arm] Blood Pressure [Right Arm] 181/80 H 171/75 H 171/80 H Blood Pressure Mean [Left Arm] Blood Pressure Mean [Right Arm] 113 107 110 Blood Pressure Position [Left Arm] Blood Pressure Position [Right Arm] Lying Pulse Oximetry 94 94 Oxygen Delivery Method Room Air Room Air 11/10/18 07:35 11/10/18 10:47 11/10/18 11:30 Temperature 36.9 C Temperature Source Oral Pulse Rate 58 L Pulse Rate [Finger] 58 L Respiratory Rate 16 Respiratory Effort / Characteristics Non-Labored Spontaneous Respiratory Depth Normal Normal Respiratory Pattern Regular Blood Pressure [Left Arm] Blood Pressure [Right Arm] 151/72 H Blood Pressure Mean [Left Arm] Blood Pressure Mean [Right Arm] 98 Blood Pressure Position [Left Arm] Blood Pressure Position [Right Arm] Lying Pulse Oximetry 92 Oxygen Delivery Method Room Air Room Air 11/10/18 15:32 11/10/18 16:56 11/10/18 18:55 Temperature 37.2 C 36.4 C L Temperature Source Oral Oral Pulse Rate 55 L Pulse Rate [Finger] 63 65 Respiratory Rate 20 20 Respiratory Effort / Characteristics Non-Labored Spontaneous Respiratory Depth Normal Normal Normal Respiratory Pattern Regular Blood Pressure [Left Arm] 159/70 H Blood Pressure [Right Arm] 138/71 Blood Pressure Mean [Left Arm] 99 Blood Pressure Mean [Right Arm] 93 Blood Pressure Position [Left Arm] Lying Blood Pressure Position [Right Arm] Lying Pulse Oximetry 95 90 Oxygen Delivery Method Room Air Room Air Room Air 11/10/18 23:17 Temperature 36.7 C Temperature Source Oral Pulse Rate Pulse Rate [Finger] 58 L Respiratory Rate 16 Respiratory Effort / Characteristics Respiratory Depth Respiratory Pattern Blood Pressure [Left Arm] Blood Pressure [Right Arm] 179/78 H Blood Pressure Mean [Left Arm] Blood Pressure Mean [Right Arm] 111 Blood Pressure Position [Left Arm] Blood Pressure Position [Right Arm] Lying Pulse Oximetry 96 Oxygen Delivery Method Room Air GENERAL: Awake, alert, well-appearing, in no distress HENT: Normocephalic, atraumatic. Oropharynx unremarkable. EYES: Normal conjunctiva. Sclera non-icteric. NECK: Supple. No nuchal rigidity. FROM. No masses. RESPIRATORY: Distant lung sounds. No wheezes. No rales. Normal respiratory effort. CARDIAC: Normal rate. Normal rhythm. No murmurs. No rubs. Extremities warm and well perfused. Pulses equal. No JVD. GI: Soft, non-distended. No tenderness to palpation. No rebound or guarding. No masses. RECTAL: Deferred. MUSCULOSKELETAL: Atraumatic. Chest examination reveals no tenderness. The back is symmetrical on inspection without obvious abnormality. There is no CVA tenderness to palpation. No joint edema. LOWER EXTREMITIES: Calves are equal size bilaterally and non-tender. 2+ pitting edema up to the top of the legs. No discoloration. NEURO: Normal sensorium. No sensory or motor deficits noted. Course 1814: Past medical records reviewed. The patient was evaluated in room B3, and a complete history and physical examination were performed. 1847: I reevaluated the patient. He is doing well and resting comfortably. 1999: I reevaluated the patient. I discussed my recommendation he remain in the hospital for further evaluation and management and he verbalized complete understanding and agreement. 2044: I discussed the patients case with Dr. Mathews, [facility]. The patient will be further evaluated. Consultations Consultation #1: I discussed the patients case with Dr. Mathews, [facility]. The patient will be further evaluated. Time: 20:45 Administered Medications Amiodarone HCl (Cordarone) 400 mg PO QPM [facility] Stop: 12/10/18 20:59 Last Admin: 11/10/18 21:08 Dose: 400 mg Apixaban (Eliquis) 2.5 mg PO BID NOEL Stop: 12/10/18 20:59 Last Admin: 11/10/18 21:10 Dose: 2.5 mg Aspirin (Ecotrin Ectab) 81 mg PO QPM NOEL Stop: 12/10/18 20:59 Last Admin: 11/10/18 21:08 Dose: 81 mg Cyanocobalamin (Vitamin B-12) 500 mcg PO DAILY NOEL Stop: 12/10/18 08:59 Last Admin: 11/10/18 07:59 Dose: 500 mcg Diphenhydramine HCl (Benadryl) 50 mg PO Q6H PRN PRN Reason: Itching Stop: 12/10/18 00:00 Last Admin: 11/10/18 21:15 Dose: 50 mg Admin: 11/10/18 00:17 Dose: 50 mg Doxazosin Mesylate (Cardura) 4 mg PO DAILY NOEL Stop: 12/10/18 08:59 Last Admin: 11/10/18 07:59 Dose: 4 mg Ezetimibe (Zetia) 10 mg PO QPM NOEL Stop: 12/10/18 20:59 Last Admin: 11/10/18 21:08 Dose: 10 mg Furosemide 40 mg/ Albumin (Human) 54 mls @ 54 mls/hr IV Q8H NOEL Stop: 11/11/18 00:59 Last Admin: 11/11/18 00:00 Dose: 54 mls/hr Infusion: 11/10/18 16:39 Dose: 0 mls/hr Admin: 11/10/18 15:39 Dose: 54 mls/hr Infusion: 11/10/18 08:45 Dose: 0 mls/hr Admin: 11/10/18 07:59 Dose: 54 mls/hr Infusion: 11/10/18 01:56 Dose: 0 mls/hr Admin: 11/10/18 00:57 Dose: 54 mls/hr Ceftriaxone Sodium (Rocephin) 1,000 mg in 50 mls @ 100 mls/hr IV DAILY@0000 NOEL Stop: 11/17/18 00:00 Last Infusion: 11/10/18 01:00 Dose: 0 mls/hr Admin: 11/10/18 00:27 Dose: 100 mls/hr Montelukast Sodium (Singulair) 10 mg PO PM NOEL Stop: 12/10/18 20:59 Last Admin: 11/10/18 21:08 Dose: 10 mg Non-Formulary Patient's Own Med: Topical Cream 1 ea EXT BID PRN PRN Reason: Itching Stop: 12/10/18 19:46 Last Admin: 11/10/18 21:10 Dose: 1 appln Pantoprazole Sodium (Protonix) 40 mg PO QPM NOEL Stop: 12/10/18 20:59 Last Admin: 11/10/18 21:08 Dose: 40 mg Simvastatin (Zocor) 10 mg PO QPM NOEL Stop: 12/10/18 20:59 Last Admin: 11/10/18 21:08 Dose: 10 mg Discontinued Medications Apixaban (Eliquis) 5 mg PO BID NOEL Stop: 12/09/18 23:49 Last Admin: 11/10/18 07:59 Dose: 5 mg Admin: 11/10/18 00:38 Dose: 5 mg Diltiazem HCl (Cardizem) 5 mg IV NOW STA Stop: 11/10/18 04:57 Last Admin: 11/10/18 05:28 Dose: 5 mg Furosemide (Lasix) 40 mg IV NOW STA Stop: 11/09/18 18:26 Last Admin: 11/09/18 18:55 Dose: 40 mg Medical Decision Making Differential Diagnosis Differential diagnoses includes but is not limited to acute coronary syndrome, myocardial infarction, pericarditis, pulmonary embolus, aortic dissection, pneumonia, pneumothorax, musculoskeletal, shingles, esophageal. Medical Records Attestation: I reviewed the patient's medical records. Home Medications Current Medication List: was personally reviewed by me Laboratory Data Attestation: I reviewed the patient's lab results. Result diagrams: 11/10/18 06:59 11/10/18 06:59 Lab Results 11/09/18 11/09/18 11/09/18 Range/Units 18:45 18:45 20:20 WBC 6.35 (4.8-10.8) K/uL RBC 3.61 L (4.7-6.1) M/uL Hgb 10.8 L (14.0-18.0) g/dL Hct 33.0 L (42-52) % MCV 91.4 (80-100) fL MCH 29.9 (25-34) pg MCHC 32.7 (32-36) g/dL RDW Std Deviation 42.5 (36.4-46.3) fL RDW Coeff of Ashley 12.7 (11.5-14.5) % Plt Count 146 (130-400) K/uL MPV 10.8 H (7.4-10.4) fL Immature Gran % (Auto) 0.2 % Neut % (Auto) 67.7 % Lymph % (Auto) 13.9 % Henry % (Auto) 9.6 % Eos % (Auto) 8.3 % Baso % (Auto) 0.3 % Immature Gran # (Auto) 0.01 (0.00-0.02) K/uL Neut # (Auto) 4.30 (1.4-6.5) K/uL Lymph # (Auto) 0.88 L (1.2-3.4) K/uL Henry # (Auto) 0.61 H (0.11-0.59) K/uL Eos # (Auto) 0.53 H (0-0.5) K/uL Baso # (Auto) 0.02 (0-0.2) K/uL PT (9.0-12.0) Seconds INR (0.9-1.1) APTT (21.0-31.0) Seconds PTT Ratio Sodium 138 (136-145) mmol/L Potassium 4.3 (3.5-5.1) mmol/L Chloride 102 (98-107) mmol/L Carbon Dioxide 28 (21-32) mmol/L Anion Gap 7.0 (3-11) BUN 30 H (7-18) mg/dl Creatinine 1.74 H (0.6-1.4) mg/dl Est Cr Clr Drug Dosing 29.5 ml/min Est GFR ( Amer) 39.7 Est GFR (Non-Af Amer) 34.2 BUN/Creatinine Ratio 17.5 (10-20) Glucose 135 H (70-99) mg/dl Calcium 8.6 (8.5-10.1) mg/dl Total Bilirubin 0.4 (0.2-1) mg/dl AST 18 (15-37) U/L ALT 18 (12-78) U/L Alkaline Phosphatase 85 (45-117) U/L Total Creatine Kinase 127 (39-308) U/L CK-MB (CK-2) 1.7 (0.5-3.6) ng/ml CK/CKMB % Calc 1.3 (0-3.0) Troponin I 0.016 (0-0.045) ng/ml NT-Pro-B Natriuret Pep 2652 H (0-1800) pg/ml Total Protein 6.1 L (6.4-8.2) gm/dl Albumin 2.4 L (3.4-5.0) gm/dl Globulin 3.7 (2.5-4.0) gm/dl Albumin/Globulin Ratio 0.7 L (0.9-2) Lipase 105 (73-393) U/L Urine Color Yellow Urine Appearance Clear (Clear) Urine pH 7.0 (4.5-7.5) Ur Specific [place] 1.009 (1.000-1.030) Urine Protein 3+ H (Negative) Urine Glucose (UA) Negative (Negative) Urine Ketones Negative (Negative) Urine Blood 1+ H (Negative) Urine Nitrite Negative (Negative) Urine Bilirubin Negative (Negative) Urine Urobilinogen Negative (Negative) Ur Leukocyte Esterase Negative (Negative) Urine WBC (Auto) 1-5 (0-5) /hpf Urine RBC (Auto) 5-10 H (0-4) /hpf U Hyaline Cast (Auto) 0 (0-5) /lpf U Epithel Cells (Auto) 5-10 H (0-5) /lpf Urine Bacteria (Auto) Negative (Negative) 11/09/18 11/09/18 11/10/18 Range/Units 21:29 23:58 06:59 WBC 6.89 (4.8-10.8) K/uL RBC 3.37 L (4.7-6.1) M/uL Hgb 10.0 L (14.0-18.0) g/dL Hct 30.7 L (42-52) % MCV 91.1 (80-100) fL MCH 29.7 (25-34) pg MCHC 32.6 (32-36) g/dL RDW Std Deviation 42.0 (36.4-46.3) fL RDW Coeff of Ashley 12.7 (11.5-14.5) % Plt Count 138 (130-400) K/uL MPV 10.8 H (7.4-10.4) fL Immature Gran % (Auto) 0.3 % Neut % (Auto) 69.9 % Lymph % (Auto) 9.9 % Henry % (Auto) 10.7 % Eos % (Auto) 9.1 % Baso % (Auto) 0.1 % Immature Gran # (Auto) 0.02 (0.00-0.02) K/uL Neut # (Auto) 4.81 (1.4-6.5) K/uL Lymph # (Auto) 0.68 L (1.2-3.4) K/uL Henry # (Auto) 0.74 H (0.11-0.59) K/uL Eos # (Auto) 0.63 H (0-0.5) K/uL Baso # (Auto) 0.01 (0-0.2) K/uL PT (9.0-12.0) Seconds INR (0.9-1.1) APTT (21.0-31.0) Seconds PTT Ratio Sodium (136-145) mmol/L Potassium (3.5-5.1) mmol/L Chloride (98-107) mmol/L Carbon Dioxide (21-32) mmol/L Anion Gap (3-11) BUN (7-18) mg/dl Creatinine (0.6-1.4) mg/dl Est Cr Clr Drug Dosing ml/min Est GFR ( Amer) Est GFR (Non-Af Amer) BUN/Creatinine Ratio (10-20) Glucose (70-99) mg/dl Calcium (8.5-10.1) mg/dl Total Bilirubin (0.2-1) mg/dl AST (15-37) U/L ALT (12-78) U/L Alkaline Phosphatase (45-117) U/L Total Creatine Kinase (39-308) U/L CK-MB (CK-2) (0.5-3.6) ng/ml CK/CKMB % Calc (0-3.0) Troponin I 0.017 0.024 (0-0.045) ng/ml NT-Pro-B Natriuret Pep (0-1800) pg/ml Total Protein (6.4-8.2) gm/dl Albumin (3.4-5.0) gm/dl Globulin (2.5-4.0) gm/dl Albumin/Globulin Ratio (0.9-2) Lipase (73-393) U/L Urine Color Urine Appearance (Clear) Urine pH (4.5-7.5) Ur Specific [place] (1.000-1.030) Urine Protein (Negative) Urine Glucose (UA) (Negative) Urine Ketones (Negative) Urine Blood (Negative) Urine Nitrite (Negative) Urine Bilirubin (Negative) Urine Urobilinogen (Negative) Ur Leukocyte Esterase (Negative) Urine WBC (Auto) (0-5) /hpf Urine RBC (Auto) (0-4) /hpf U Hyaline Cast (Auto) (0-5) /lpf U Epithel Cells (Auto) (0-5) /lpf Urine Bacteria (Auto) (Negative) 11/10/18 11/10/18 Range/Units 06:59 06:59 WBC (4.8-10.8) K/uL RBC (4.7-6.1) M/uL Hgb (14.0-18.0) g/dL Hct (42-52) % MCV (80-100) fL MCH (25-34) pg MCHC (32-36) g/dL RDW Std Deviation (36.4-46.3) fL RDW Coeff of Ashley (11.5-14.5) % Plt Count (130-400) K/uL MPV (7.4-10.4) fL Immature Gran % (Auto) % Neut % (Auto) % Lymph % (Auto) % Henry % (Auto) % Eos % (Auto) % Baso % (Auto) % Immature Gran # (Auto) (0.00-0.02) K/uL Neut # (Auto) (1.4-6.5) K/uL Lymph # (Auto) (1.2-3.4) K/uL Henry # (Auto) (0.11-0.59) K/uL Eos # (Auto) (0-0.5) K/uL Baso # (Auto) (0-0.2) K/uL PT 11.4 (9.0-12.0) Seconds INR 1.1 (0.9-1.1) APTT 29.3 (21.0-31.0) Seconds PTT Ratio 1.1 Sodium 137 (136-145) mmol/L Potassium 4.2 (3.5-5.1) mmol/L Chloride 105 (98-107) mmol/L Carbon Dioxide 29 (21-32) mmol/L Anion Gap 3.0 (3-11) BUN 31 H (7-18) mg/dl Creatinine 1.65 H (0.6-1.4) mg/dl Est Cr Clr Drug Dosing 30.6 ml/min Est GFR ( Amer) 42.3 Est GFR (Non-Af Amer) 36.5 BUN/Creatinine Ratio 18.9 (10-20) Glucose 129 H (70-99) mg/dl Calcium 8.4 L (8.5-10.1) mg/dl Total Bilirubin 0.4 (0.2-1) mg/dl AST 17 (15-37) U/L ALT 15 (12-78) U/L Alkaline Phosphatase 72 (45-117) U/L Total Creatine Kinase (39-308) U/L CK-MB (CK-2) (0.5-3.6) ng/ml CK/CKMB % Calc (0-3.0) Troponin I (0-0.045) ng/ml NT-Pro-B Natriuret Pep (0-1800) pg/ml Total Protein 5.7 L (6.4-8.2) gm/dl Albumin 2.4 L (3.4-5.0) gm/dl Globulin 3.3 (2.5-4.0) gm/dl Albumin/Globulin Ratio 0.7 L (0.9-2) Lipase (73-393) U/L Urine Color Urine Appearance (Clear) Urine pH (4.5-7.5) Ur Specific [place] (1.000-1.030) Urine Protein (Negative) Urine Glucose (UA) (Negative) Urine Ketones (Negative) Urine Blood (Negative) Urine Nitrite (Negative) Urine Bilirubin (Negative) Urine Urobilinogen (Negative) Ur Leukocyte Esterase (Negative) Urine WBC (Auto) (0-5) /hpf Urine RBC (Auto) (0-4) /hpf U Hyaline Cast (Auto) (0-5) /lpf U Epithel Cells (Auto) (0-5) /lpf Urine Bacteria (Auto) (Negative) Imaging Data Radiologist's Impression: Radiology results as stated below per my review and the radiologist's interpretation: XR chest 1V portable CLINICAL HISTORY: Chest Pain COMPARISON STUDY: Chest radiograph September 26, 2018. FINDINGS: There are median sternotomy wires. There are small bilateral pleural effusions. There is no pneumothorax. Mild bibasilar opacities favor atelectasis. Pulmonary edema has developed since prior exam. Moderate cardiomegaly is noted. IMPRESSION: 1. Interval development of mild pulmonary edema with small bilateral pleural effusions. 2. Bibasilar opacities suggestive of atelectasis. Electronically signed by: Ten Perales M.D. 11/09/2018 7:31 PM ECG Data Attestation: I personally reviewed and interpreted this ECG as follows: Indication: SOB/dyspnea Rate (beats per minute): 62 Rhythm: atrial fibrillation Findings: no ST depression and no ST elevation Blood Pressure Blood Pressure Findings: Elevated blood pressure Blood Pressure Disposition: further management by hospitalist MDM Narrative This is an 88-year-old male who presents emergency department after 15 pound weight gain. Patient has recently been started on Lasix for congestive heart failure however despite this he is retaining fluid. He was given 40 mill grams of Lasix here in the emergency department. His chest x-ray is concerning for increasing pulmonary edema. Due to the patient's increasing kidney function I did discuss the case with the hospitalist service who agreed to admit the patient. Patient family were in agreement with the treatment plan. Impression & Plan CHF exacerbation Discharge Plan Visit Data *Final* Discharge Date/Time: 11/09/18 23:23 Chief Complaint: Shortness of Breath/Dyspnea Stated Complaint: SOB, RETAINING FLUID ED Provider: Cooper Hatfield Discharge Problem: CHF exacerbation Patient Disposition: Admitted As Inpatient Discharge Instructions Interventions: ED Discharge Assessment Last Done: 11/09/18 23:23 The scribe's documentation has been prepared under my direction and personally reviewed by me in its entirety. I confirm that the note above accurately reflects all work, treatment, procedures, and medical decision making performed by me.
[2018-11-11 07:28] LABS: Basophils # (auto) 0.03 K/uL (0-0.2); Basophils % (auto) 0.5 %; Eosinophils # (auto) 0.72 K/uL (0-0.5); Eosinophils % (auto) 12.8 %; Hematocrit (blood only) 30.6 % (42-52); Immature Granulocytes # (auto) 0.01 K/uL (0.00-0.02); Immature Granulocytes % (auto) 0.2 %; Lymphocytes # (auto) 0.87 K/uL (1.2-3.4); Lymphocytes % (auto) 15.4 %; Mean Corpuscular Hgb Conc 32.7 g/dL (32-36); Mean Corpuscular Volume 91.3 fL (80-100); Mean Platelet Volume 11.1 fL (7.4-10.4); Monocytes # (auto) 0.64 K/uL (0.11-0.59); Monocytes % (auto) 11.3 %; Neutrophils # (auto) 3.37 K/uL (1.4-6.5); Neutrophils % (auto) 59.8 %; Platelet Count 146 K/uL (130-400); RDW Coefficient of Variation 12.7 % (11.5-14.5); RDW Standard Deviation 42.4 fL (36.4-46.3); Red Blood Count 3.35 M/uL (4.7-6.1); White Blood Count 5.64 K/uL (4.8-10.8)
[2018-11-11] MEDS: CYANOCOBALAMIN 500 MCG TABLET (VITAMIN B-12) PO SCH (07:28)
[2018-11-11] MEDS: DOXAZosin MESYLATE 4 MG TAB PO SCH (07:29)
[2018-11-11] MEDS: APIXABAN 2.5 MG TAB PO SCH ×2 (07:29→21:02)
[2018-11-11 07:37] LABS: INR 1.1 (0.9-1.1); Prothrombin Time 11.5 Seconds (9.0-12.0)
[2018-11-11 07:55] LABS: Albumin Level 2.6 gm/dl (3.4-5.0); BUN Creatinine Ratio 20.3 (10-20); Calcium 8.7 mg/dl (8.5-10.1); Creatinine Clr Calc Pharmacy 27.2 ml/min; Est GFR (African American) 37.1; Magnesium 2.2 mg/dl (1.8-2.4)
[2018-11-11 07:59] LABS: Albumin Globulin Ratio 0.8 (0.9-2); Bilirubin,Total 0.5 mg/dl (0.2-1); Ferritin 166.6 ng/ml (8-388); Globulin 3.3 gm/dl (2.5-4.0); Total Protein 5.9 gm/dl (6.4-8.2)
[2018-11-11 08:29] LABS: Urine Total Protein 360.1 mg/dl
[2018-11-11] MEDS ORDERED: FUROSEMIDE 40 MG TAB PO ONE (09:19)
--- NOTE | 2018-11-11 09:23 | Nephrology Progress Note ---
Date of Service November 11, 2018 Assessment & Plan (1) Acute kidney injury superimposed on chronic kidney disease: -- Non-oliguric -- Repeat renal US deferred pending additional monitoring -- Clinically consistent with pre-renal azotemia and possible ATN; cannot exclude glomerulopathy -- 24 hour urine collection results pending -- sPRA2r sent with outpatient labs prior to admission -- Metabolic profile otherwise acceptable -- No current indication for [employer] -- Lisinopril held -- Baseline creatinine 1.25 mg/dL -- UA demonstrates persistent proteinuria and microscopic hematuria: 3+ protein , 1-5 WBC and 5-10 RBC -- Continue furosemide to encourage net negative fluid balance (adequate response to 40 mg IV x 4 doses with 12.5 gm albumin): repeat 40 mg IV q 12 hours today -- Reasonable to avoid additional IV albumin with diuretic (2) Atrial fibrillation: -- Plan of care discussed with Dr. Kang this morning -- Remains on amiodarone -- BP and heart rate acceptable -- Appears otherwise relatively asymptomatic -- Suggest decreasing Eliquis to 2.5 mg twice daily due to kidney dysfunction (3) HTN (hypertension): -- BP slightly elevated but acceptable -- Maintained on Cardura 4 mg daily -- Monitor with diuresis (4) Anemia: -- H/H stable -- Tsat slightly low -- Consider iron replacement (5) Hypoalbuminemia: -- Stable -- Repeat urine protein assessment for prospective monitoring is pending Subjective No acute events overnight. Kenyon feels well this morning. He notes significant improvement in edema and in dyspnea. He has diuresed well overnight. He denies chest pain or palpitations. He denies lightheadedness or dizziness. Appetite is good. Constitutional: + weight loss; no fever and no chills Respiratory: + dyspnea on exertion; no cough and no change in sputum Cardiovascular: + edema; no chest pain, no palpitations, no lightheadedness and no syncope Integumentary: + rash, + dry skin and + pruritus Physical Exam 2 Vital Signs (Past 24 Hours): Last Vital Signs Temp 37.0 C 11/11/18 06:51 Pulse 53 L 11/11/18 08:29 Resp 18 11/11/18 06:51 BP 169/74 H 11/11/18 06:51 Pulse Ox 93 11/11/18 06:51 Constitutional: well developed and + frail appearing; no acute distress Eyes: no scleral abnormality and no corneal abnormality ENMT: Mouth: no oropharynx abnormality and oral mucous membranes not dry Neck: trachea midline Thyroid: + abnormal thyroid Respiratory: Auscultation: lungs clear to auscultation bilaterally and + rales Cardiovascular: Heart Sounds: normal S1 and normal S2; no murmur and no cardiac rub Extremities: + edema Gastrointestinal (Abdomen): Percussion/Palpation: abdomen soft; abdomen nontender and no ascites Musculoskeletal: Head/Neck/Chest: + head abnormal to inspection; + evidence of head trauma Skin: + turgor decreased and + dry skin; no erythema Neurologic: Motor/Sensory: no tremor and no asterixis Results & Data Laboratory Results Laboratory Results - last 24 hr 11/11/18 11/11/18 11/11/18 07:07 07:07 07:07 WBC 5.64 RBC 3.35 L Hgb 10.0 L Hct 30.6 L MCV 91.3 MCH 29.9 MCHC 32.7 RDW Std Deviation 42.4 RDW Coeff of Ashley 12.7 Plt Count 146 MPV 11.1 H Immature Gran % (Auto) 0.2 Neut % (Auto) 59.8 Lymph % (Auto) 15.4 [place] % (Auto) 11.3 Eos % (Auto) 12.8 Baso % (Auto) 0.5 Immature Gran # (Auto) 0.01 Neut # (Auto) 3.37 Lymph # (Auto) 0.87 L [place] # (Auto) 0.64 H Eos # (Auto) 0.72 H Baso # (Auto) 0.03 PT 11.5 INR 1.1 Sodium 138 Potassium 4.0 Chloride 102 Carbon Dioxide 28 Anion Gap 8.0 BUN 37 H Creatinine 1.84 H Est Cr Clr Drug Dosing 27.2 Est GFR ( Amer) 37.1 Est GFR (Non-Af Amer) 32.0 BUN/Creatinine Ratio 20.3 H Glucose 123 H Calcium 8.7 Magnesium 2.2 Iron 49 Transferrin 186 L Transferrin % Sat 19 L Ferritin 166.6 Total Bilirubin 0.5 AST 16 ALT 16 Alkaline Phosphatase 73 Total Protein 5.9 L Albumin 2.6 L Globulin 3.3 Albumin/Globulin Ratio 0.8 L Urine Total Protein 11/11/18 07:45 WBC RBC Hgb Hct MCV MCH MCHC RDW Std Deviation RDW Coeff of Ashley Plt Count MPV Immature Gran % (Auto) Neut % (Auto) Lymph % (Auto) [place] % (Auto) Eos % (Auto) Baso % (Auto) Immature Gran # (Auto) Neut # (Auto) Lymph # (Auto) [place] # (Auto) Eos # (Auto) Baso # (Auto) PT INR Sodium Potassium Chloride Carbon Dioxide Anion Gap BUN Creatinine Est Cr Clr Drug Dosing Est GFR ( Amer) Est GFR (Non-Af Amer) BUN/Creatinine Ratio Glucose Calcium Magnesium Iron Transferrin Transferrin % Sat Ferritin Total Bilirubin AST ALT Alkaline Phosphatase Total Protein Albumin Globulin Albumin/Globulin Ratio Urine Total Protein 360.1 _ (1) Atrial fibrillation Atrial fibrillation type: unspecified Qualified Code(s): I48.91 - Unspecified atrial fibrillation (2) HTN (hypertension) Hypertension type: essential hypertension Qualified Code(s): I10 - Essential (primary) hypertension
[2018-11-11 09:27] LABS: Total Protein 24 Hour Urine 9182.6 mg/24 Hr (0-149.1)
--- NOTE | 2018-11-11 09:30 | Cardiology Progress Note ---
Date of Service November 11, 2018 Assessment & Plan (1) CHF exacerbation: This is likely acute on chronic diastolic CHF. He is diuresing well on IV furosemide 40 mg twice daily. Discussed with Dr. Ramirez at the bedside. We will continue current management for now. (2) Atrial fibrillation: His ventricular response is adequately controlled on his current medical regimen. Do not feel that electrical cardioversion is necessary at this time. Agree reduced dose of Eliquis to 2.5 mg b.i.d.. (3) CAD (coronary artery disease): The patient had 5 for 6 bypasses performed back in 1979. He has also had stents placed in the right coronary artery graft in 2006, and obtuse marginal graft in 2017. Results of those procedures are not available for our review. (4) HTN (hypertension): Adequate control on his current medical regimen. Subjective Mr. Bonilla is resting comfortably in the bedside chair without complaints of chest pain or dyspnea. Claims to feel significantly better verses yesterday. Physical Exam 2 Vital Signs (Past 24 Hours): Last Vital Signs Temp 37.0 C 11/11/18 06:51 Pulse 53 L 11/11/18 08:29 Resp 18 11/11/18 06:51 BP 169/74 H 11/11/18 06:51 Pulse Ox 93 11/11/18 06:51 Physical Exam: In general is well-developed well-nourished white male lying supine in bed without complaints. HEENT exam is negative. Neck is supple with full carotid upstrokes. No obvious bruits. Jugular venous pressure is 10 cm of water at 90 degrees. Cardiovascular exam reveals an irregular rhythm with distant heart sounds. No obvious murmurs or S3. Lungs note bibasilar crackles but no rhonchi or wheezes. Abdomen is obese without bruits. Extremities reveal 2+ pretibial and 1+ edema in the thighs. Results & Data Laboratory Results Laboratory Results - last 24 hr 11/11/18 11/11/18 11/11/18 07:07 07:07 07:07 WBC 5.64 RBC 3.35 L Hgb 10.0 L Hct 30.6 L MCV 91.3 MCH 29.9 MCHC 32.7 RDW Std Deviation 42.4 RDW Coeff of Ashley 12.7 Plt Count 146 MPV 11.1 H Immature Gran % (Auto) 0.2 Neut % (Auto) 59.8 Lymph % (Auto) 15.4 [place] % (Auto) 11.3 Eos % (Auto) 12.8 Baso % (Auto) 0.5 Immature Gran # (Auto) 0.01 Neut # (Auto) 3.37 Lymph # (Auto) 0.87 L [place] # (Auto) 0.64 H Eos # (Auto) 0.72 H Baso # (Auto) 0.03 PT 11.5 INR 1.1 Sodium 138 Potassium 4.0 Chloride 102 Carbon Dioxide 28 Anion Gap 8.0 BUN 37 H Creatinine 1.84 H Est Cr Clr Drug Dosing 27.2 Est GFR ( Amer) 37.1 Est GFR (Non-Af Amer) 32.0 BUN/Creatinine Ratio 20.3 H Glucose 123 H Calcium 8.7 Magnesium 2.2 Iron 49 Transferrin 186 L Transferrin % Sat 19 L Ferritin 166.6 Total Bilirubin 0.5 AST 16 ALT 16 Alkaline Phosphatase 73 Total Protein 5.9 L Albumin 2.6 L Globulin 3.3 Albumin/Globulin Ratio 0.8 L Urine Total Volume Urine Total Protein 11/11/18 07:45 WBC RBC Hgb Hct MCV MCH MCHC RDW Std Deviation RDW Coeff of Ashley Plt Count MPV Immature Gran % (Auto) Neut % (Auto) Lymph % (Auto) [place] % (Auto) Eos % (Auto) Baso % (Auto) Immature Gran # (Auto) Neut # (Auto) Lymph # (Auto) [place] # (Auto) Eos # (Auto) Baso # (Auto) PT INR Sodium Potassium Chloride Carbon Dioxide Anion Gap BUN Creatinine Est Cr Clr Drug Dosing Est GFR ( Amer) Est GFR (Non-Af Amer) BUN/Creatinine Ratio Glucose Calcium Magnesium Iron Transferrin Transferrin % Sat Ferritin Total Bilirubin AST ALT Alkaline Phosphatase Total Protein Albumin Globulin Albumin/Globulin Ratio Urine Total Volume 2550 Urine Total Protein 360.1 Diagnostic Findings Telemetry notes rate controlled atrial fibrillation. _ (1) CHF exacerbation Heart failure type: unspecified Qualified Code(s): I50.9 - Heart failure, unspecified (2) Atrial fibrillation Atrial fibrillation type: unspecified Qualified Code(s): I48.91 - Unspecified atrial fibrillation (3) HTN (hypertension) Hypertension type: essential hypertension Qualified Code(s): I10 - Essential (primary) hypertension
[2018-11-11] MEDS ORDERED: FUROSEMIDE 80 MG TAB PO SCH (17:00)
--- NOTE | 2018-11-11 17:00 | Family Medicine Progress Note ---
Date of Service November 11, 2018 Assessment & Plan (1) CHF exacerbation: CHF exacerbation: -Continue amiodarone 400 mg, apixaban 2.5 mg BID, asa 81 mg, doxazosin 4 mg daily. -Hold lisinopril 20 mg BID d/t LUIS FELIPE -Does not appear that further diuresis required at this time. -Will provide education regarding salt intake, weights, sliding scale Lasix, etc. -Cards notes afib could be a factor, however, rates are well controlled, and significant hypoalbuminemia is a contributing factor. -Appreciate cardiology and nephrology input Atrial fibrillation: -Rates adequately controlled on his current regimen. -May be contributing to presentation, however, unlikely. -Decrease eliquis to 2.5 bid 2/2 LUIS FELIPE -Continue amiodarone HTN (hypertension): -Currently adequately controlled with Cardura 4mg -AV ariana blocking medications avoided due to low heart rate Acute kidney injury superimposed on chronic kidney disease: -Hold lisinopril -Monitor labs: Baseline creatinine 1.2 mg/dL -Repeat renal US deferred at this time -Per nephro: �Clinically consistent with pre-renal azotemia and possible ATN; cannot exclude glomerulopathy at this time but would defer additional management pending further observation and repeat urine studies� -UA shows proteinuria, microscopic hematuria: 3+ protein, 1-5 WBC and 5-10 RBC -Repeat 24 hour urine for protein: 9000mg protein/24 hours. pro:cr 4.9 and total protein of 360. CAD (coronary artery disease): -H/O CABG and PCI with stenting in 2006. Obtuse marginal graft 2016. -Medical management: ASA, Ezetimibe, simvastatin -Last echo 2013, unknown results Hypercholesterolemia: -Continue simvastatin 10 mg daily and Zetia 10 mg daily Anemia: -Chronic, stable -Iron profile: Total iron 49, transferrin of 186, Transf sat 19%, Ferritin of 166 Hypoalbuminemia: -24 hour urine results as above. -Will defer to nephrology for further managment Urticaria -May use home triamcinolone -Ordered vaseline hs DVTP: eliquis Code: Full Dispo: Likely home tomorrow (2) Acute kidney injury superimposed on chronic kidney disease: (3) Atrial fibrillation: (4) Edema, peripheral: (5) Hypoalbuminemia: (6) Acute kidney injury: (7) HTN (hypertension): (8) Hypercholesterolemia: Supervising Physician Co-Signing Physician Notes I personally examined the patient and verified all elmore points of history and exam, discussed case, and agree with decision making with Dr Sanchez. Overall breathing better. No current complaints. 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 Vitals noted, in general he is awake alert pleasant no distress. HEENT normocephalic atraumatic mucous membranes are moist. Lungs unlabored no accessory muscle use good effort. Acute on chronic diastolic CHF�continue diuresis, continue supportive care, stable for MedSurg. Hopefully home tomorrow. Otherwise as above Subjective Patient subjectively continues to feel better and better. The vaseline worked well for his legs at night. He had many questions regarding his medications, his condition, etc, which were all answered. Constitutional: + weight gain; no fever and no chills Eyes: + corrective lenses Respiratory: + cough and + dyspnea on exertion Cardiovascular: + dyspnea on exertion and + edema; no chest pain, no chest pain at rest and no radiating jaw, neck or arm pain Gastrointestinal: + bloating (gas pain); no abdominal pain Integumentary: + urticaria (medial mid-leg, bilaterally) Physical Exam 2 Vital Signs (Past 24 Hours): Last Vital Signs Temp 36.8 C 11/11/18 15:52 Pulse 53 L 11/11/18 16:00 Resp 18 11/11/18 15:52 BP 168/72 H 11/11/18 15:52 Pulse Ox 95 11/11/18 15:52 Constitutional: WD/WN, vitals as above Eyes: PERRL, conjunctivae normal, anicteric sclerae ENMT: external ear and nose normal, oropharynx normal Neck: normal visual inspection Respiratory: normal respiratory effort Auscultation: + crackles (bibasilar , greatly improved) Cardiovascular: Rate/Rhythm: regular rate; + abnormal rhythm (irregular rhythm ) Heart Sounds: normal S1 and normal S2 (loud S2) Extremities: + pedal edema; no calf tenderness Gastrointestinal (Abdomen): normal bowel sounds, soft, nontender, no hepatosplenomegaly Musculoskeletal: no cyanosis or clubbing, extremities motor strength 5/5 Skin: no rashes, warm and dry (scant excoriations on inner aspects of legs. No fungal areas noted, no macular/papular lesions noted) Neurologic: PERRL, EOMI, accommodation nl, no face palsy, no dysarthria Psychiatric: A+Ox3, euthymic affect Results & Data Laboratory Results 11/11/18 11/11/18 11/11/18 Range/Units 07:45 07:07 07:07 WBC (4.8-10.8) K/uL RBC (4.7-6.1) M/uL Hgb (14.0-18.0) g/dL Hct (42-52) % MCV (80-100) fL MCH (25-34) pg MCHC (32-36) g/dL RDW Std Deviation (36.4-46.3) fL RDW Coeff of Ashley (11.5-14.5) % Plt Count (130-400) K/uL MPV (7.4-10.4) fL Immature Gran % (Auto) % Neut % (Auto) % Lymph % (Auto) % [place] % (Auto) % Eos % (Auto) % Baso % (Auto) % Immature Gran # (Auto) (0.00-0.02) K/uL Neut # (Auto) (1.4-6.5) K/uL Lymph # (Auto) (1.2-3.4) K/uL [place] # (Auto) (0.11-0.59) K/uL Eos # (Auto) (0-0.5) K/uL Baso # (Auto) (0-0.2) K/uL PT 11.5 (9.0-12.0) Seconds INR 1.1 (0.9-1.1) Sodium 138 (136-145) mmol/L Potassium 4.0 (3.5-5.1) mmol/L Chloride 102 (98-107) mmol/L Carbon Dioxide 28 (21-32) mmol/L Anion Gap 8.0 (3-11) BUN 37 H (7-18) mg/dl Creatinine 1.84 H (0.6-1.4) mg/dl Est Cr Clr Drug Dosing 27.2 ml/min Est GFR ( Amer) 37.1 Est GFR (Non-Af Amer) 32.0 BUN/Creatinine Ratio 20.3 H (10-20) Glucose 123 H (70-99) mg/dl Calcium 8.7 (8.5-10.1) mg/dl Magnesium 2.2 (1.8-2.4) mg/dl Iron 49 (35-175) mcg/dl Transferrin 186 L (200-360) mg/dl Transferrin % Sat 19 L (20-50) % Ferritin 166.6 (8-388) ng/ml Total Bilirubin 0.5 (0.2-1) mg/dl AST 16 (15-37) U/L ALT 16 (12-78) U/L Alkaline Phosphatase 73 (45-117) U/L Total Protein 5.9 L (6.4-8.2) gm/dl Albumin 2.6 L (3.4-5.0) gm/dl Globulin 3.3 (2.5-4.0) gm/dl Albumin/Globulin Ratio 0.8 L (0.9-2) Urine Total Volume 2550 mL Ur Total Protein 24 Hr 9182.6 H (0-149.1) mg/24 Hr Urine Total Protein 360.1 mg/dl 11/11/18 Range/Units 07:07 WBC 5.64 (4.8-10.8) K/uL RBC 3.35 L (4.7-6.1) M/uL Hgb 10.0 L (14.0-18.0) g/dL Hct 30.6 L (42-52) % MCV 91.3 (80-100) fL MCH 29.9 (25-34) pg MCHC 32.7 (32-36) g/dL RDW Std Deviation 42.4 (36.4-46.3) fL RDW Coeff of Ashley 12.7 (11.5-14.5) % Plt Count 146 (130-400) K/uL MPV 11.1 H (7.4-10.4) fL Immature Gran % (Auto) 0.2 % Neut % (Auto) 59.8 % Lymph % (Auto) 15.4 % [place] % (Auto) 11.3 % Eos % (Auto) 12.8 % Baso % (Auto) 0.5 % Immature Gran # (Auto) 0.01 (0.00-0.02) K/uL Neut # (Auto) 3.37 (1.4-6.5) K/uL Lymph # (Auto) 0.87 L (1.2-3.4) K/uL [place] # (Auto) 0.64 H (0.11-0.59) K/uL Eos # (Auto) 0.72 H (0-0.5) K/uL Baso # (Auto) 0.03 (0-0.2) K/uL PT (9.0-12.0) Seconds INR (0.9-1.1) Sodium (136-145) mmol/L Potassium (3.5-5.1) mmol/L Chloride (98-107) mmol/L Carbon Dioxide (21-32) mmol/L Anion Gap (3-11) BUN (7-18) mg/dl Creatinine (0.6-1.4) mg/dl Est Cr Clr Drug Dosing ml/min Est GFR ( Amer) Est GFR (Non-Af Amer) BUN/Creatinine Ratio (10-20) Glucose (70-99) mg/dl Calcium (8.5-10.1) mg/dl Magnesium (1.8-2.4) mg/dl Iron (35-175) mcg/dl Transferrin (200-360) mg/dl Transferrin % Sat (20-50) % Ferritin (8-388) ng/ml Total Bilirubin (0.2-1) mg/dl AST (15-37) U/L ALT (12-78) U/L Alkaline Phosphatase (45-117) U/L Total Protein (6.4-8.2) gm/dl Albumin (3.4-5.0) gm/dl Globulin (2.5-4.0) gm/dl Albumin/Globulin Ratio (0.9-2) Urine Total Volume mL Ur Total Protein 24 Hr (0-149.1) mg/24 Hr Urine Total Protein mg/dl Medications Administered Current Inpatient Medications Acetaminophen (Ofirmev) 1,000 mg IV Q8H PRN PRN Reason: Pain or Fever Stop: 12/09/18 23:49 Acetaminophen (Tylenol) 650 mg PO Q4H PRN PRN Reason: Pain or Fever Stop: 12/09/18 23:49 Al Hydrox/Mg Hydrox/Simethicone (Maalox) 15 ml PO Q4H PRN PRN Reason: Dyspepsia Stop: 12/09/18 23:49 Albuterol (Duoneb) 3 ml NEB Q2H PRN PRN Reason: dyspnea Stop: 12/09/18 23:49 Amiodarone HCl (Cordarone) 400 mg PO QPM NOEL Stop: 12/10/18 20:59 Last Admin: 11/10/18 21:08 Dose: 400 mg Apixaban (Eliquis) 2.5 mg PO BID NOEL Stop: 12/10/18 20:59 Last Admin: 11/11/18 07:29 Dose: 2.5 mg Aspirin (Ecotrin Ectab) 81 mg PO QPM NOEL Stop: 12/10/18 20:59 Last Admin: 11/10/18 21:08 Dose: 81 mg Cyanocobalamin (Vitamin B-12) 500 mcg PO DAILY NOEL Stop: 12/10/18 08:59 Last Admin: 11/11/18 07:28 Dose: 500 mcg Diphenhydramine HCl (Benadryl) 50 mg PO Q6H PRN PRN Reason: Itching Stop: 12/10/18 00:00 Last Admin: 11/10/18 21:15 Dose: 50 mg Doxazosin Mesylate (Cardura) 4 mg PO DAILY NOEL Stop: 12/10/18 08:59 Last Admin: 11/11/18 07:29 Dose: 4 mg Ezetimibe (Zetia) 10 mg PO QPM NOEL Stop: 12/10/18 20:59 Last Admin: 11/10/18 21:08 Dose: 10 mg Emollient Ointment (Petrolatum) 3 oz EXT HS PRN PRN Reason: Itching Stop: 12/10/18 16:34 Furosemide (Lasix) 80 mg PO BID17 [facility] Stop: 12/11/18 16:59 Ceftriaxone Sodium (Rocephin) 1,000 mg in 50 mls @ 100 mls/hr IV DAILY@0000 NOEL Stop: 11/17/18 00:00 Last Infusion: 11/10/18 01:00 Dose: Infused Magnesium Hydroxide (Milk Of Magnesia) 30 ml PO Q12H PRN PRN Reason: Constipation Stop: 12/09/18 23:49 Montelukast Sodium (Singulair) 10 mg PO PM [facility] Stop: 12/10/18 20:59 Last Admin: 11/10/18 21:08 Dose: 10 mg Non-Formulary Patient's Own Med: Topical Cream 1 ea EXT BID PRN PRN Reason: Itching Stop: 12/10/18 19:46 Last Admin: 11/10/18 21:10 Dose: 1 appln Ondansetron HCl (Zofran) 4 mg IV Q6H PRN PRN Reason: NAUSEA/VOMITING Stop: 12/09/18 23:49 Pantoprazole Sodium (Protonix) 40 mg PO QPM NOEL Stop: 12/10/18 20:59 Last Admin: 11/10/18 21:08 Dose: 40 mg Polyethylene Glycol (Miralax Powder Packet) 17 gm PO DAILY PRN PRN Reason: Constipation Stop: 12/09/18 23:49 Simvastatin (Zocor) 10 mg PO QPM NOEL Stop: 12/10/18 20:59 Last Admin: 11/10/18 21:08 Dose: 10 mg Resident Activity Tracking Resident Involvement: Resident Care Provided Care Provided: Adult [facility] Medicine _ (1) CHF exacerbation Heart failure type: unspecified Qualified Code(s): I50.9 - Heart failure, unspecified (2) Atrial fibrillation Atrial fibrillation type: unspecified Qualified Code(s): I48.91 - Unspecified atrial fibrillation (3) HTN (hypertension) Hypertension type: essential hypertension Qualified Code(s): I10 - Essential (primary) hypertension
[2018-11-11] MEDS: PANTOprazole 40 MG TAB PO SCH (21:02)
[2018-11-11] MEDS: MONTELUKAST SODIUM 10 MG TABLET PO SCH (21:02)
[2018-11-11] MEDS: AMIODARONE 200 MG TAB PO SCH (21:02)
[2018-11-11] MEDS: EZETIMIBE 10 MG TABLET PO SCH (21:02)
[2018-11-11] MEDS: SIMVASTATIN 10 MG TAB PO SCH (21:03)
[2018-11-11] MEDS: ASPIRIN 81 MG ECTAB PO SCH (21:03)
--- NOTE | 2018-11-12 08:58 | Cardiology Progress Note ---
Date of Service November 12, 2018 Assessment & Plan (1) CHF exacerbation: Acute on chronic diastolic CHF. The patient has diuresed well and is now on Lasix 40 mg b.i.d.. Suggest using Lasix 40 mg daily at home with an additional dose of 40 mg if necessary for weight gain of 3 or more lb. His weight the 1st morning at home should act as his "dry" weight. (2) Atrial fibrillation: His ventricular response is adequately controlled on his current medical regimen. Agree reduced dose of Eliquis to 2.5 mg b.i.d.. (3) CAD (coronary artery disease): The patient had 5 for 6 bypasses performed back in 1979. He has also had stents placed in the right coronary artery graft in 2006, and obtuse marginal graft in 2017. (4) HTN (hypertension): Borderline control on his current medical regimen. Will discuss addition of another agent with Dr. Ramirez. Subjective Mr. Bonilla is resting comfortably in the bedside chair without complaints of chest pain or dyspnea. Anxious for hospital discharge. We have again discussed the concept of daily weights and sliding-scale diuretics. We have also discussed following a low-salt diet. Physical Exam 2 Vital Signs (Past 24 Hours): Last Vital Signs Temp 36.9 C 11/12/18 08:11 Pulse 57 L 11/12/18 08:11 Resp 18 11/12/18 08:11 BP 183/78 H 11/12/18 08:11 Pulse Ox 95 11/12/18 08:11 Physical Exam: In general is well-developed well-nourished white male lying supine in bed without complaints. HEENT exam is negative. Neck is supple with full carotid upstrokes. No obvious bruits. Jugular venous pressure at the base of the neck. Cardiovascular exam reveals an irregular rhythm with distant heart sounds. No obvious murmurs or S3. Lungs note bibasilar crackles but no rhonchi or wheezes. Abdomen is obese without bruits. Extremities reveal 1+ pretibial and trace edema in the thighs. Results & Data Laboratory Results Laboratory Results - last 24 hr 11/11/18 07:45 Urine Total Volume 2550 Ur Total Protein 24 Hr 9182.6 H _ (1) CHF exacerbation Heart failure type: unspecified Qualified Code(s): I50.9 - Heart failure, unspecified (2) Atrial fibrillation Atrial fibrillation type: unspecified Qualified Code(s): I48.91 - Unspecified atrial fibrillation (3) HTN (hypertension) Hypertension type: essential hypertension Qualified Code(s): I10 - Essential (primary) hypertension
[2018-11-12] MEDS ORDERED: FUROSEMIDE 40 MG TAB PO SCH (09:00)
[2018-11-12] MEDS: APIXABAN 2.5 MG TAB PO SCH (09:10)
[2018-11-12] MEDS: DOXAZosin MESYLATE 4 MG TAB PO SCH (09:15)
[2018-11-12] MEDS: CYANOCOBALAMIN 500 MCG TABLET (VITAMIN B-12) PO SCH (09:16)
[2018-11-12 09:53] LABS: Albumin Level 2.7 gm/dl (3.4-5.0); BUN Creatinine Ratio 19.7 (10-20); Calcium 8.9 mg/dl (8.5-10.1); Creatinine Clr Calc Pharmacy 24.9 ml/min; Est GFR (African American) 33.3; Est GFR (Non-African American) 28.8
[2018-11-12 09:56] LABS: Phosphorus 3.5 mg/dl (2.5-4.9)
--- NOTE | 2018-11-12 12:02 | Nephrology Progress Note ---
Date of Service November 12, 2018 Assessment & Plan (1) Acute kidney injury superimposed on chronic kidney disease: -- Non-oliguric -- Will repeat renal US today (this will help with arranging biopsy as outpatient) -- Proteinuria markedly increased 3-->9 grams -- PLA2r negative in serum -- Volume status is improving -- JOHN PAUL has been held -- Kidney biopsy will be necessary for definitive diagnosis (I spoke with Dr. Perry and I will arrange this as an outpatient post discharge) and [place]yon is interested -- Metabolic profile otherwise acceptable -- No current indication for [employer] -- Baseline creatinine 1.25 mg/dL -- Continue furosemide 40 mg twice daily -- I will arrange outpatient follow up within the next week, anticipating appropriate discharge today (2) Atrial fibrillation: -- Remains on amiodarone -- BP and heart rate acceptable -- Appears otherwise relatively asymptomatic -- Eliquis to 2.5 mg twice daily due to kidney dysfunction (3) HTN (hypertension): -- BP slightly elevated but acceptable -- Maintained on Cardura 4 mg daily -- Monitor with diuresis (4) Anemia: -- H/H stable -- Tsat slightly low but acceptable (5) Hypoalbuminemia: -- Stable -- Repeat urine protein assessment for prospective monitoring is pending Subjective No acute events overnight. Kenyon feels well this morning. Edema has significantly improved. He is breathing comfortably. He has diuresed well overnight. He denies chest pain or palpitations. He denies lightheadedness or dizziness. Appetite is good. He feels comfortable with the idea of discharge home. Constitutional: + weight loss; no fever and no chills Respiratory: no cough, no change in sputum and no dyspnea Cardiovascular: + edema; no chest pain, no palpitations, no lightheadedness and no syncope Physical Exam 2 Vital Signs (Past 24 Hours): Last Vital Signs Temp 36.9 C 11/12/18 08:11 Pulse 57 L 11/12/18 08:11 Resp 18 11/12/18 08:11 BP 183/78 H 11/12/18 08:11 Pulse Ox 95 11/12/18 08:11 Constitutional: well developed, + frail appearing and + edematous; no acute distress Eyes: no scleral abnormality and no corneal abnormality ENMT: Mouth: no oropharynx abnormality and oral mucous membranes not dry Neck: trachea midline Thyroid: + abnormal thyroid Respiratory: Auscultation: lungs clear to auscultation bilaterally and + rales Cardiovascular: Heart Sounds: normal S1 and normal S2; no murmur and no cardiac rub Extremities: + edema Gastrointestinal (Abdomen): Percussion/Palpation: abdomen soft; abdomen nontender and no ascites Musculoskeletal: Head/Neck/Chest: + head abnormal to inspection; + evidence of head trauma Skin: + turgor decreased and + dry skin; no erythema Neurologic: Motor/Sensory: no tremor and no asterixis _ (1) Atrial fibrillation Atrial fibrillation type: unspecified Qualified Code(s): I48.91 - Unspecified atrial fibrillation (2) HTN (hypertension) Hypertension type: essential hypertension Qualified Code(s): I10 - Essential (primary) hypertension
--- NOTE | 2018-11-12 12:40 | Discharge Summary ---
Date of Service November 12, 2018 Admission HPI Per Admitting Provider The patient is an 88-year-old male with a PMH including CAD/hypertension/ hyperlipidemia/paroxysmal atrial fibrillation/chronic kidney disease stage III and anemia, who presents to the emergency department with a 15 pound weight gain since discharge on 10/01, and worsening shortness of breath. He also reports intermittent itching from a generalized body rash that he and family reports has been present over the past few years. Principal Diagnosis acute on chronic diastolic chf Discharge Exam Constitutional: WD/WN, vitals as above Eyes: conjunctivae normal, anicteric sclerae ENMT: external ear and nose normal, oropharynx normal Neck: normal visual inspection Respiratory: normal respiratory effort Auscultation: + crackles (bibasilar, greatly improved) Cardiovascular: Rate/Rhythm: regular rate; + abnormal rhythm (irregular rhythm ) Heart Sounds: normal S1 and normal S2 (loud S2) Extremities: + pedal edema + 1 to mid partida; no calf tenderness Gastrointestinal: normal bowel sounds, soft, nontender, no hepatosplenomegaly Musculoskeletal: no cyanosis or clubbing, extremities motor strength 5/5 Skin: no rashes, warm and dry (scant excoriations on inner aspects of legs. No fungal areas noted, no macular/papular lesions noted) Neurologic: PERRL, EOMI, accommodation nl, no face palsy, no dysarthria Psychiatric: A+Ox3, euthymic affect Discharge Data Allergies Allergy/AdvReac Type Severity Reaction Status Date / Time animal dander Allergy Unknown RESPIRATORY Verified 11/09/18 19:43 PROBLEMS Iodinated Contrast- Oral and Allergy Unknown "MILD Verified 11/09/18 19:43 IV Dye TICKLLING OF THROAT" mold Allergy Unknown RESPIRATORY Verified 11/09/18 19:43 PROBLEMS pollen extracts Allergy Unknown RESPIRATORY Verified 11/09/18 19:43 PROBLEMS Consultations 11/09/18 19:50 ED Decision to Admit Stat 11/09/18 23:50 Consult Cardiology Routine Consult Case Management - Discharge Planning Routine Consult Nephrology Routine 11/10/18 04:21 Consult Cardiology Routine Consult Nephrology Routine Hospital Course (1) CHF exacerbation: CHF exacerbation: Cardiology and nephrology input appreciated. Given rate control, exacerbation more likely to do with significant hypoalbuminemia rather than A. fib. On discharge, patient advised to: -Increase furosemide from 20mg daily to 40mg daily with education provided for daily weights + need for PRN dose of furosemide if he notes a weight gain of > 3lbs from baseline (weight on discharge). -Follow up with pipe and tank fabricator, Dr. Jarvis as arranged Rate controlled atrial fibrillation: Rates adequately controlled on his current regimen. On discharge, patient advised to: -Continue decreased rate of apixaban 2.5mg BID (given progression in kidney disease), and continue amiodarone as prescribed previously. -Follow-up with beer still runner compounder, Dr. Ramirez as arranged -If persistent, discuss ongoing gum bleeding with PCP/pipe and tank fabricator/beer still runner compounder Elevated creatinine with proteinuria causing hypoalbuminemia superimposed on CKD Baseline creatinine 1.2 mg/dL. Repeat renal US deferred at this time. Per nephro �Clinically consistent with pre-renal azotemia and possible ATN; cannot exclude glomerulopathy at this time but would defer additional management pending further observation and repeat urine studies.� UA shows proteinuria, microscopic hematuria: 3+ protein, 1-5 WBC and 5-10 RBC. 24 hour urine for protein: 9000mg protein/24 hours. pro:cr 4.9 and total protein of 360. -Hold nephrotoxic medications including lisinopril for now. -Follow-up with nephrology arranged as above HTN: -Lisinopril discontinued due to progression of kidney disease. Doxazosin increased from 4mg daily to 4mg BID -Discuss further blood pressure control with PCP/pipe and tank fabricator/beer still runner compounder CAD (coronary artery disease): -H/O CABG and PCI with stenting in 2006. Obtuse marginal graft 2016. -Medical management: ASA, Ezetimibe, simvastatin -Last echo 2013, unknown results Hypercholesterolemia: -Continue simvastatin 10 mg daily and Zetia 10 mg daily Anemia: Chronic, stable. Iron profile: Total iron 49, transferrin of 186, Transf sat 19% , Ferritin of 166 -Discussed starting iron supplementation given borderline transferrin. Can discuss this further with PCP. Urticaria -Continue triamcinolone Code: Full (2) Acute kidney injury superimposed on chronic kidney disease: (3) Atrial fibrillation: (4) Edema, peripheral: (5) Hypoalbuminemia: (6) Acute kidney injury: (7) HTN (hypertension): (8) Hypercholesterolemia: Total Time Total Time Spent Total Time Spent (In Minutes): <30 Discharge Plan Discharge Items Patient Disposition: Home - Self-Care Reason For Visit: ACUTE CHF,15LB WEIGHT GAIN Discharge Diagnosis: Acute dCHF exacerbation Discharge Goals: Improve disease control, Increase independence and Therapeutic intervention Activity: Resume your previous activity Non-emergency contact: Primary Care Provider, Radiation Technician and [employer] Call non-emergency contact if: your symptoms worsen Follow-up/Referrals: Elias Springer MD [Primary Care Provider] - 11/19/18 3:00 pm (Please, follow up with Dr. Elias Springer on ThursdayNovember 19 at 3:00 pm. *If you need to change this appointment, call the office at [phone].) Daniel Mabry MD [Family Provider] - 11/25/18 12:00 pm (Please, follow up at [facility] Cardiology Office with Dr. Mabry on November 25 at 12:00 pm. *If you need to change this appointment, call the office at [phone].) Cooper Ramirez DO [Physician] - 11/18/18 1:35 pm (Please, follow up at [facility] Nephrology Office with Dr. Ramirez on November 18 at 1:35 pm. *If you need to change this appointment, call the office at [phone].) Diet: Heart Healthy Addtl Provider Instructions: You were admitted for shortness of breath due to fluid on your lungs. The cause may be 2-fold given you have both chronic diastolic heart failure and loss of excess protein in your urine. On discharge, we make the following recommendations: Fluid on the lungs: 1) Increase your furosemide (Lasix) from 20mg daily to 40mg daily to help remove excess fluid from the body 2) Continue to weigh yourself daily. 3) Consider your "baseline weight" to be the weight you are on the day your are discharged, and if you noticed you have gained 3lbs from this baseline, take a second dose of the furosemide 40mg dose that day. 4) Follow up with Dr. Jarvis has been arranged as above. A.fib 1) Decrease your apixaban (Eliquis) dose from 5mg twice daily to 2.5mg twice daily. Hopefully this helps reduce the occurrence of gum bleeding. But should the bleeding continue, please discuss this with your doctors. 2) Continue the amiodarone as before High BP 1) Lisinopril was stopped because of the elevation of creatinine/kidney strain 2) In its place, increase doxazosin (Cardura) to 4mg twice a day, morning and evening. 3) Discuss further blood pressure management with Dr. Ramirez at your follow up appointment as above. Low hemoglobin - This is sometimes an issue with chronic kidney disease and may have been contributed to by have frequent gum bleeding. 1) Start over the counter iron supplement may be helpful to rebuild your body's iron stores. Warning, they iron supplements may make your stool dark, do not be alarmed. 2) Discuss the need to continue these further with Dr. Ramirez at your follow up as above. Continue all other medication as before. Prescriptions: New furosemide 40 mg Tablet 40 mg PO BID17 Qty: 30 RF: 0 apixaban [Eliquis] 2.5 mg Tablet 2.5 mg PO BID Qty: 60 RF: 0 Continue simvastatin [Zocor] 10 mg tablet 10 mg PO QPM RF: 0 cyanocobalamin (vitamin B-12) [Vitamin B-12] 500 mcg Tablet 500 mcg PO DAILY RF: 0 pantoprazole [Protonix] 40 mg tablet,delayed release (DR/EC) 40 mg PO QPM RF: 0 nitroglycerin [Nitrostat] 0.4 mg Tablet, Sublingual 0.4 mg Sublingual UD PRN (Reason: Chest Pain) RF: 0 montelukast [Singulair] 10 mg Tablet 10 mg PO PM RF: 0 ezetimibe [Zetia] 10 mg Tablet 10 mg PO QPM RF: 0 coenzyme Q10 [Co Q-10] 100 mg Capsule 100 mg PO DAILY RF: 0 acetaminophen [Tylenol] 325 mg Capsule 650 mg PO Q6H PRN (Reason: Pain) RF: 0 Sildenafil Citrate 20 Mg 1 - 5 tab PO UD RF: 0 amiodarone [Pacerone] 200 mg tablet 400 mg PO QPM RF: 0 aspirin [Aspir-81] 81 mg Tablet,Delayed Release (Dr/Ec) 81 mg PO QPM RF: 0 Changed doxazosin 4 mg tablet 4 mg PO BID Qty: 60 RF: 0 Discontinued lisinopril [Zestril] 20 mg tablet 20 mg PO BID RF: 0 apixaban [Eliquis] 5 mg tablet 5 mg PO BID RF: 0 furosemide [Lasix] 20 mg tablet 20 mg PO DAILY PRN (Reason: Edema) RF: 0 Stand-Alone Forms: My [facility] Discharge Orders: Discharge Order (Routine); Ordered 11/12/18 Ordered By: Hollie Garcia Admission Data Admit Date/Time: 11/09/18 22:01 Attending Provider: Patrick Perry Admit Provider: Javan Mathews Primary Care Provider: Elias Springer Other Providers: Daniel Mabry ; Cooper Ramirez ; Javan Mathews Service: Medical Other Interventions: Discharge Summary Assessment (RN) Last Done: 11/12/18 15:59 DC Date/Time DO NOT enter until pt leaves facility: 11/12/18 16:33 Supervising Physician Co-Signing Physician Notes I personally examined the patient and verified all [place] points of history and exam, discussed case, and agree with decision making with Dr Garcia. Feeling better breathing better, feels like he would do okay at home. Extensive discussion on sodium restriction, discussion on follow-up with nephrology. Discussed increasing his doxazosin. Vitals noted, in general he is awake alert oriented x3 pleasant no acute distress breathing is unlabored no accessory muscle use good effort no focal neuro deficit skin is no rashes no pallor or icterus Acute on chronic diastolic CHF�he is doing better, and is stable to go home. Discussed sodium restriction as above, recommended at least less than 2000 mg if not better less than 1500 mg. Worsening CKD�uncertain if this is new baseline or not, ongoing close follow-up with nephrology next week. Dr. Alegre thinks he may need a biopsy which he will work on arranging. Resident Activity Tracking Resident Involvement: Resident Care Provided Care Provided: Adult Hospital Medicine
--- NOTE | 2018-11-12 14:30 | Ultrasound Report ---
ULTRASOUND KIDNEYS AND BLADDER CLINICAL HISTORY: Acute renal insufficiency. COMPARISON STUDY: Abdominal CT dated 02/05/2012. TECHNIQUE: Real-time, grayscale, and color flow sonography of the kidneys and bladder is performed. I mages are reviewed in the transverse and longitudinal planes. FINDINGS: Kidneys: The kidneys are demonstrate cortical atrophy. The kidneys are normal in echotexture. The rig ht kidney measures 11.0 cm in length and the left kidney measures 12.4 cm. There is no hydronephros is. A 2.6 cm cyst is identified in the right lower pole. No shadowing renal calculi are identified. T here is no sonographic evidence of contour deforming renal mass lesion. No perinephric fluid is ident ified. Bladder: The prostate gland is enlarged and there is median lobe hypertrophy. The bladder wall is thi ckened and trabeculated indicating chronic outlet obstruction. Ureteral jets were not seen. Pleural spaces: A small left pleural effusion is noted. IMPRESSION: 1. The kidneys are atrophic and without hydronephrosis. 2. Prostatomegaly with evidence of chronic bladder outlet obstruction. 3. Small left pleural effusion. Electronically signed by: Issa Wilson M.D. 11/12/2018 2:29 PM
== END 2018-11-12 16:33 | disposition home or self-care (01) | DRG 291 ==
LOC: ED 18:02 → 2S 22:01 → SUATTDRO 22:01 → 2S 23:23 → 4W 11-11 15:39